=== PATIENT | male | born 1945 | race Caucasian/White ===

== ENCOUNTER 2016-07-13 09:33 | Outpatient (CLI) | payer MEDICARE, OTHER ==
[~2016-07-13] VITALS: Ht 188 cm; Wt 94.9 kg
[~2016-07-13 09:33] MED LIST: ACEB200C PO; ACEB200C11 PO; ASP325TEC PO; ATEN-156 PO; CHOL4PAC PO; CHOL4PAC19 PO; CHOL4PAC3 PO; CYCL10TA9 PO; FISH1CAP15 PO; HYDR-3820 PO; NAPR220C11 PO; NYST30OI TOP; OMEG1CAP58 PO; OMG1KC PO; PNT40TEC PO; PRAV40TA PO; PRAV80TA PO; PRD20T PO; TICA90TA PO; [UNRECOGNIZED DRUG - OTHER] TOP
[2016-07-13] MEDS ORDERED: ATOR40TA70 PO (09:44)
[2016-07-13 09:50] VITALS: BP 146/81
[2016-07-13 10:40] LABS: BASOPHILS % (AUTO) 1 % (0-10); EOSINOPHILS # (AUTO) 0.1 10^3/uL (0.0-0.3); EOSINOPHILS % (AUTO) 1 % (0-10); LYMPHOCYTES # (AUTO) 1.5 X 10^3 (1.0-4.0); LYMPHOCYTES % (AUTO) 24 % (12-44); MEAN CORPUSCULAR HEMOGLOBIN 32 PG (25-34); MEAN CORPUSCULAR HGB CONC 34 G/DL (32-36); MEAN CORPUSCULAR VOLUME 95 FL (80-99); MEAN PLATELET VOLUME 11.9 FL (7.4-10.4); MONOCYTES # (AUTO) 0.6 X 10^3 (0.0-1.0); MONOCYTES % (AUTO) 10 % (0-12); NEUTROPHILS # (AUTO) 3.9 X 10^3 (1.8-7.8); NEUTROPHILS % (AUTO) 65 % (42-75); PLATELET COUNT 152 10^3/uL (130-400); WHITE BLOOD COUNT 6.1 10^3/uL (4.3-11.0)
[2016-07-13 11:01] LABS: ANION GAP 10 MMOL/L (5-14); BLOOD UREA NITROGEN 16 MG/DL (7-18); BUN/CREATININE RATIO 15; CALCIUM 9.1 MG/DL (8.5-10.1); CARBON DIOXIDE 24 MMOL/L (21-32); CHLORIDE 108 MMOL/L (98-107); CREATININE SERUM 1.05 MG/DL (0.60-1.30); GFR ESTIMATED > 60; GLUCOSE 109 MG/DL (70-105); POTASSIUM 4.1 MMOL/L (3.6-5.0); SODIUM 142 MMOL/L (135-145)
== END 2016-07-13 11:47 | disposition home or self-care (01) ==
LOC: PREOP 09:33
PROVIDERS: ATTEND Surgery
DX: Z01.810 Encounter for preprocedural cardiovascular examination (principal); Z01.812 Encounter for preprocedural laboratory examination; Z11.2 Encounter for screening for other bacterial diseases; K40.90 Unilateral inguinal hernia, without obstruction or gangrene, not specified as recurrent
CPT/HCPCS: 36415; 80048; 85025; 87081

== ENCOUNTER 2016-07-16 10:16 | Day surgery (SDC) | payer MEDICARE, OTHER ==
[~2016-07-16] VITALS: Ht 188 cm; Wt 94.9 kg
[~2016-07-16 10:16] MED LIST changes: +ATOR40TA70 PO
[2016-07-16] MEDS ORDERED: FAMOTIDINE 20MG/2ML IV (PEPCID) ONE (10:38)
[2016-07-16] MEDS ORDERED: FAMOTIDINE 20MG/2ML IV (PEPCID) IV ONE (10:45)
[2016-07-16] MEDS ORDERED: LIDOCAINE PF 2% 10 ML (XYLOCAINE) AMP ONE (10:49)
[2016-07-16] MEDS ORDERED: ROCURONIUM 50 MG/5 ML (ZEMURON) VIAL IV ONE (10:49)
[2016-07-16] MEDS ORDERED: SEVOFLURANE (ULTANE) 15 ML INHAL SOLN ONE ×3 (10:49→14:38)
[2016-07-16] MEDS ORDERED: ONDANSETRON 4 MG/2 ML (SDV) Z0FRAN ONE (10:49)
[2016-07-16] MEDS ORDERED: proPOfol 200 MG/20 ML (DIPRIVAN) VIAL IV ONE (10:49)
[2016-07-16] MEDS ORDERED: DEXAMETHASONE PF 10 MG/ML (DECADRON) VIAL ONE (10:49)
[2016-07-16] MEDS ORDERED: fentaNYL INJECTION 100 MCG/2 ML AMP ONE ×3 (10:49→17:52)
[2016-07-16] MEDS ORDERED: MIDAZOLAM 2 MG/2 ML (VERSED) VIAL ONE (10:50)
[2016-07-16] MEDS: LACTATED RINGERS 1,000 ML IV PRN ×2 (10:56→13:15)
[2016-07-16] MEDS ORDERED: BUP/EPI 0.25% 1:200,000 (MARCAINE) 30 ML VIAL ONE (10:57)
[2016-07-16 11:07] VITALS: BP 146/76
--- NOTE | 2016-07-16 12:15 | Progress Note-Pre Operative ---
Pre-Operative Progress Note H&P Reviewed The H&P was reviewed, patient examined and no changes noted. Date H&P Reviewed: Jul 16, 2016 Time H&P Reviewed: 12:15 Pre-Operative Diagnosis: R Inguinal hernia CHANDLER CRUZ MD Jul 16, 2016 12:15 pm
[2016-07-16] MEDS ORDERED: ceFAZolin 2 GM/50 ML NS 50 ML IV ONE (12:45)
[2016-07-16] MEDS ORDERED: GLYCOPYRROLATE 0.2 MG/ML (ROBINUL) 2 ML VIAL ONE (14:27)
[2016-07-16] MEDS ORDERED: NEOSTIGMINE (BLOXIVERZ ) 1 MG/1ML 10 ML VIAL ONE (14:27)
[2016-07-16] MEDS ORDERED: ONDANSETRON 4 MG/2 ML (SDV) Z0FRAN IVP PRN ×2 (15:00→16:30)
[2016-07-16] MEDS ORDERED: MEPERIDINE (DEMEROL) INJ 50 MG/ML IVP PRN (15:00)
[2016-07-16] MEDS: morphine INJ 10 MG/ML 1ML (SYR OR VIAL) IVP PRN ×2 (15:21→15:26)
[2016-07-16 16:00] VITALS: BP 158/71
--- NOTE | 2016-07-16 16:16 | Progress Note-Post Operative ---
Post-Operative Progess Note Pre-Operative Diagnosis R Inguinal hernia Post-Operative Diagnosis same Post-Op Procedure Note Date of Procedure: Jul 16, 2016 Name of Procedure: robotic assisted repair with mesh Anesthesia Type Gen. Estimated blood loss (mL): minimal CHANDLER CRUZ MD Jul 16, 2016 4:16 pm
[2016-07-16] MEDS ORDERED: HYDR-3812 PO (16:22)
--- NOTE | 2016-07-16 16:24 | Discharge Inst-Simple/Standard ---
Discharge Inst-Standard Discharge Medications New, Converted or Re-Newed RX: RX on Chart Patient Instructions/Follow Up Plan of Care/Instructions/FU: dressings off in a.m. Follow-up in 3 weeks. Activity as Tolerated: No Goal: no lifting over 10 pounds Discharge Diet: No Restrictions CHANDLER CRUZ MD Jul 16, 2016 4:23 pm
[2016-07-16 16:50] VITALS: BP 160/71
[2016-07-16] MEDS: LACTATED RINGERS 1,000 ML IV SCH (18:05)
[2016-07-16] MEDS: fentaNYL INJECTION 100 MCG/2 ML AMP IV PRN (18:06)
[2016-07-16 20:00] VITALS: BP 163/74
[2016-07-16] MEDS: HYDROcodone/APAP 5 MG/325 MG (LORTAB) TAB PO PRN (20:40)
[2016-07-16] MEDS ORDERED: ACEBUTOLOL HCL 200 MG PO SCH (21:00)
[2016-07-16] MEDS ORDERED: OMEGA-3 ACID ETHYL ESTERS 1 GM (LOVAZA) NON-FORMULARY PO SCH (21:00)
[2016-07-17] MEDS: fentaNYL INJECTION 100 MCG/2 ML AMP IV PRN (00:22)
[2016-07-17] MEDS: HYDROcodone/APAP 5 MG/325 MG (LORTAB) TAB PO PRN ×2 (00:22→09:24)
[2016-07-17 00:42] VITALS: BP 129/60
[2016-07-17] MEDS: LACTATED RINGERS 1,000 ML IV SCH (01:40)
[2016-07-17 04:30] VITALS: BP 121/56
[2016-07-17] MEDS ORDERED: NAPROXEN 250 MG (NAPROSYN) TABLET PO PRN (06:45)
[2016-07-17 08:00] VITALS: BP 120/60
[2016-07-17] MEDS ORDERED: ATORVASTATIN 40 MG (LIPITOR) TABLET PO SCH ×2 (09:00→12:00)
[2016-07-17] MEDS ORDERED: CHOLESTYRAMINE 4 GM (QUESTRAN LITE, PREVALITE) PKT PO SCH (09:00)
[2016-07-17] MEDS ORDERED: ASPIRIN E.C. 325 MG (ECOTRIN) TABLET PO SCH ×2 (09:00→17:00)
[2016-07-17] MEDS ORDERED: PANTOPRAZOLE 40 MG (PROTONIX) TAB PO SCH ×2 (09:00→17:00)
--- NOTE | 2016-07-17 09:26 | Progress Note-Standard ---
Standard Progress Note Progress Notes/Assess & Plan Progress/Assessment & Plan 07/17/16:Minimal post-op discomfort. Tolerating diet. incisions dry, could be discharged home Final Diagnosis R ing hernia CHANDLER CRUZ MD Jul 17, 2016 9:26 am
--- NOTE | 2016-07-17 09:50 | Anesthesia-General Post-Op ---
General Patient Condition Mental Status/LOC: Same as Preop Cardiovascular: Satisfactory Nausea/Vomiting: Absent Respiratory: Satisfactory Pain: Controlled Complications: Absent Post Op Complications Complications None Follow Up Care/Instructions Patient Instructions None needed. Anesthesia/Patient Condition Patient Condition Patient is doing well, no complaints, stable vital signs, no apparent adverse anesthesia problems. No complications reported per nursing. D/C home per [facility] [place]: No KATERINE MORAES CRNA Jul 17, 2016 09:50
[2016-07-17] MEDS ORDERED: OMEG-160 PO (10:18)
[2016-07-17 10:30] VITALS: BP 120/60
[2016-07-17 11:30] VITALS: BP 120/60
[2016-07-17] MEDS ORDERED: OMEGA 3 (FISH OIL) 1000 MG CAP PO SCH (12:34)
--- NOTE | 2016-07-21 07:31 | OPERATIVE REPORT ---
PROCEDURE PHYSICIAN: CHANDLER CRUZ DATE OF PROCEDURE: 07/13/2016 PREOPERATIVE DIAGNOSIS: Right inguinal hernia. POSTOPERATIVE DIAGNOSIS: Right inguinal hernia. OPERATION: Robotic assisted repair of right inguinal hernia with mesh. SURGEON: Dr. Cruz. ANESTHESIA: General anesthesia. BLOOD LOSS: Minimal. FLUIDS: 1500 mL crystalloids. TYPE OF WOUND: Type I (clean wound). INDICATION FOR PROCEDURE: This gentleman presented with a symptomatic, reducible right inguinal hernia. He was offered minimally invasive repair with robotic assistance and mesh reinforcement. Informed consent was obtained after reviewing the operative details and complications of hematoma, infection of the mesh and recurrence of the hernia. DESCRIPTION OF PROCEDURE: He was placed supine on the operating table and general anesthesia induced using an endotracheal tube. A gram of Ancef was administered intravenously as prophylaxis against wound infection. Sequential compression devices were placed around his legs, to minimize the risk of venous thrombosis. A Pérez catheter was placed to decompress the bladder during surgery. It was removed at the end of the operation. His abdomen was prepared and draped in the usual sterile manner. A supraumbilical incision was made and the pneumoperitoneum established using a Veress needle. Intra-abdominal pressure was maintained at 15 mmHg, using carbon dioxide insufflation. A 12 mm trocar was placed and anatomy visualized using the 3 dimensional, high definition laparoscope associated with da Shonda system. Omentum was found around the trocar and therefore I placed an 8 mm cannula over the left side of the abdomen and visualized the access point over the supraumbilical region using the high definition laparoscope. Omentum itself was confirmed to be adherent to the undersurface of the abdominal wall around the trocar. There was no iatrogenic injury. Therefore, I elected to place a 5 mm trocar over the left lower quadrant and taken down omentum using a laparoscopic grasper. Subsequently, another 8 mm trocar was placed over the right side of the abdomen, in preparation for robotic assisted repair. The patient was turned into steep Trendelenburg position, to displace loops of bowel out of the pelvis. The laparoscopic survey confirmed a large direct hernia. The contents had been reduced by the insufflation. Peritoneum was incised laterally continuing across to the midline. Pre-peritoneal space was entered and dissection continued in a lateral to medial fashion. Hakeem's ligament was easily delineated. Hernia sac containing some extraperitoneal fat was reduced completely. There was no indirect sac. The defect was closed using 2-0 V-LOC suture with robotic assistance without much tension. The repair was then reinforced using a polypropylene mesh measuring 10 x 16 cm in size, preformed to fit the pre-peritoneal space on the right side. It was secured to Hakeem's ligament and the lateral abdominal musculature using 2-0 Vicryl sutures with robotic assistance. The pre-peritoneal space was then closed using a 2-0 V-LOC suture with robotic assistance. Hemostasis was satisfactory and the operation concluded. The fascia over the supraumbilical incision was closed using number 1 Vicryl. The skin was closed using 4-0 Vicryl, in a subcuticular fashion. 0.25% Marcaine with epinephrine was infiltrated along the incisions, both preemptively and at the conclusion of the operation. He tolerated the procedure well, was extubated in the operating room and taken to the recovery room in a stable condition. [place], sponges, and instruments were correct at the end of the operation. Job ID: [id number] Dictated Date: 07/16/2016 16:12:45 Temperature Logging Operator Date: 07/18/2016 00:01:19 / nga <Dictated by CHANDLER CRUZ MD> <Electronically signed by CHANDLER CRUZ MD> 07/19/16 [id number]
== END 2016-07-17 11:30 | disposition home or self-care (01) ==
LOC: SDC 10:16 → CSD 16:13 → 4TH 21:46 → SDC 07-17 11:30
PROVIDERS: ATTEND Surgery
DX: K40.90 Unilateral inguinal hernia, without obstruction or gangrene, not specified as recurrent (principal)
CPT/HCPCS: 94664

== ENCOUNTER → 2016-11-30 | Outpatient (CLI) | payer MEDICARE, OTHER ==
[~2016-11-30] MED LIST changes: +HYDR-3812 PO; +OMEG-160 PO
[2016-11-30 11:37] LABS: ALBUMIN 4.2 GM/DL (3.2-4.5); BILIRUBIN,DIRECT 0.6 MG/DL (0.0-0.3); BILIRUBIN,INDIRECT 1.8 MG/DL; BILIRUBIN,TOTAL 2.4 MG/DL (0.1-1.0); TOTAL PROTEIN 6.9 GM/DL (6.4-8.2)
== END ==
LOC: LAB 11:06
PROVIDERS: ATTEND Internal Medicine Cardiovascular Disease
DX: I25.10 Atherosclerotic heart disease of native coronary artery without angina pectoris (principal); R07.9 Chest pain, unspecified; R73.9 Hyperglycemia, unspecified; R00.2 Palpitations; I49.3 Ventricular premature depolarization
CPT/HCPCS: 36415; 80061; 80076

== ENCOUNTER → 2017-10-22 | Outpatient (CLI) | payer MEDICARE, OTHER ==
[~2017-10-22] MED LIST changes: +ACHD5005 PO; -HYDR-3812 PO
[2017-10-22 12:05] LABS: ALANINE AMINOTRANSFERASE 23 U/L (0-55); ALBUMIN 4.3 GM/DL (3.2-4.5); ALKALINE PHOSPHATASE 65 U/L (40-136); BILIRUBIN,TOTAL 2.4 MG/DL (0.1-1.0); BUN/CREATININE RATIO 17; CALCIUM 9.4 MG/DL (8.5-10.1); CARBON DIOXIDE 24 MMOL/L (21-32); CHLORIDE 110 MMOL/L (98-107); CHOLESTEROL 131 MG/DL (< 200); CREATININE SERUM 0.99 MG/DL (0.60-1.30); GFR ESTIMATED > 60; GLUCOSE 111 MG/DL (70-105); HDL CHOLESTEROL 37 MG/DL (40-60); POTASSIUM 4.4 MMOL/L (3.6-5.0); SODIUM 142 MMOL/L (135-145); TOTAL PROTEIN 6.8 GM/DL (6.4-8.2); TRIGLYCERIDES 152 MG/DL (<150); VLDL CHOLESTEROL 30 MG/DL (5-40)
== END ==
LOC: LAB 11:18
PROVIDERS: ATTEND Internal Medicine Cardiovascular Disease
DX: I25.10 Atherosclerotic heart disease of native coronary artery without angina pectoris (principal); R07.9 Chest pain, unspecified; R73.9 Hyperglycemia, unspecified; E78.2 Mixed hyperlipidemia; R00.2 Palpitations
CPT/HCPCS: 36415; 80053; 80061

== ENCOUNTER → 2018-06-01 | Outpatient (CLI) | payer MEDICARE, OTHER ==
[2018-06-01 14:53] LABS: BASOPHILS % (AUTO) 1 % (0-10); EOSINOPHILS # (AUTO) 0.1 10^3/uL (0.0-0.3); EOSINOPHILS % (AUTO) 1 % (0-10); HEMATOCRIT 48 % (40-54); HEMOGLOBIN 16.1 G/DL (13.3-17.7); LYMPHOCYTES # (AUTO) 1.3 X 10^3 (1.0-4.0); LYMPHOCYTES % (AUTO) 19 % (12-44); MEAN CORPUSCULAR HEMOGLOBIN 33 PG (25-34); MEAN CORPUSCULAR HGB CONC 34 G/DL (32-36); MEAN CORPUSCULAR VOLUME 97 FL (80-99); MEAN PLATELET VOLUME 11.2 FL (7.4-10.4); MONOCYTES # (AUTO) 0.6 X 10^3 (0.0-1.0); MONOCYTES % (AUTO) 8 % (0-12); NEUTROPHILS # (AUTO) 4.9 X 10^3 (1.8-7.8); NEUTROPHILS % (AUTO) 72 % (42-75); PLATELET COUNT 194 10^3/uL (130-400); RED BLOOD COUNT 4.95 10^6/uL (4.35-5.85); RED CELL DISTRIBUTION WIDTH 13.4 % (10.0-14.5); WHITE BLOOD COUNT 6.8 10^3/uL (4.3-11.0)
[2018-06-01 15:14] LABS: ALANINE AMINOTRANSFERASE 27 U/L (0-55); ALBUMIN 4.6 GM/DL (3.2-4.5); ALKALINE PHOSPHATASE 69 U/L (40-136); BILIRUBIN,TOTAL 2.6 MG/DL (0.1-1.0); BUN/CREATININE RATIO 15; CALCIUM 9.7 MG/DL (8.5-10.1); CARBON DIOXIDE 25 MMOL/L (21-32); CHLORIDE 106 MMOL/L (98-107); CREATININE SERUM 1.08 MG/DL (0.60-1.30); GFR ESTIMATED > 60; GLUCOSE 130 MG/DL (70-105); POTASSIUM 3.9 MMOL/L (3.6-5.0); SODIUM 143 MMOL/L (135-145); TOTAL PROTEIN 7.4 GM/DL (6.4-8.2)
[2018-06-01 15:57] LABS: ERYTHROCYTE SEDIMENTATION RATE 4 MM/HR (0-30)
--- NOTE | 2018-06-01 16:42 | Diagnostic Imaging Report ---
EXAMINATION: Testicular ultrasound. INDICATION: Testicular lump. TECHNIQUE: Spectral and color flow imaging of the testicles was performed. COMPARISON: There are no prior studies available for comparison. FINDINGS: Both testicles were identified. The right testicle measures 5.3 x 2.5 x 3.1 cm while the left testicle is estimated to be 5.5 x 2.3 x 2.8 cm. Within the inferior portion of the left testicle, there is a well-circumscribed 1.5 x 1.2 x 1.8 cm hypoechoic lesion. This does appear to contain a single septation. I suspect that this is a benign process such as a cyst. There also appears to be a very small 0.3 x 0.3 cm cyst in the superior portion of the right testicle. In addition, there is a sizable septated epididymal cyst on the right. This measures 4.5 x 4.2 x 2.2 cm. The epididymis on the left is unremarkable. There is good blood flow to each testicle and there is no sign of torsion. There is no hydrocele or varicocele formation. IMPRESSION: 1. There is a septated cyst within the inferior portion of the left testicle and there is a large septated cyst associated with the epididymis on the right. There is also a minute right testicular cyst. If further evaluation is desired, then a urologic consult would be recommended. 2. There is no solid testicular mass evident and there is no sign of torsion. Dictated by: Dictated on workstation # [id number]
== END ==
LOC: RAD 14:33
PROVIDERS: ATTEND Nurse Practitioner Family
DX: N44.2 Benign cyst of testis (principal); N50.9 Disorder of male genital organs, unspecified
CPT/HCPCS: 36415; 76870; 80053; 84153; 85025; 85652

== ENCOUNTER → 2018-06-08 | Outpatient (CLI) | payer MEDICARE, OTHER | LOC: CARD 11:43 | PROVIDERS: ATTEND Physician Assistant | DX: I25.10 Atherosclerotic heart disease of native coronary artery without angina pectoris (principal); E78.5 Hyperlipidemia, unspecified; R00.2 Palpitations; I49.3 Ventricular premature depolarization; I07.1 Rheumatic tricuspid insufficiency | CPT/HCPCS: 93306 ==

== ENCOUNTER → 2018-07-06 | Outpatient (CLI) | payer MEDICARE, OTHER ==
[~2018-07-06] MED LIST changes: +CATHETER FLUSH 10 ML SYR IV PRN; +REGADENOSON 0.4 MG/5 ML SYR (LEXISCAN) IV ONE
[2018-07-06 13:11] VITALS: BP 153/66
--- NOTE | 2018-07-06 23:52 | STRESS TEST ---
DATE OF SERVICE: 07/06/2018 LEXISCAN MYOVIEW STRESS TEST REPORT Baseline heart rate is 57. Baseline blood pressure is 177/78. Baseline EKG is sinus rhythm with no ischemic changes. In summary, the patient was injected with 10.53 mCi of technetium-99 Myoview and the resting images were obtained. Then, the patient received 0.4 mg of Lexiscan followed by 28.7 mCi of technetium-99 Myoview. Throughout the test, there were no EKG changes. The resting and stress images were reviewed and compared in the short axis, horizontal long axis, and vertical long axis views. Review of the images showed good radiotracer uptake with no significant ischemia or infarction. SSS is 2, SDS 2, TID value 1.04. On the gated images, the left ventricle appeared to be normal size with normal contractility. Calculated ejection fraction 63%. CONCLUSION: 1. The patient tolerated Lexiscan well. 2. No ischemia or infarction on SPECT images. 3. Normal left ventricular size with normal contractility. Calculated ejection fraction 63%. Job ID: [id number] DocumentID: [id number] Dictated Date: 07/06/2018 17:29:21 Warehouse Stocker Date: 07/06/2018 23:51:48 Dictated By: PILO FORBES MD
== END ==
LOC: CARD 11:03
PROVIDERS: ATTEND Physician Assistant
DX: I25.10 Atherosclerotic heart disease of native coronary artery without angina pectoris (principal); E78.5 Hyperlipidemia, unspecified; R00.2 Palpitations; I49.3 Ventricular premature depolarization
CPT/HCPCS: 78452; 93017

== ENCOUNTER 2018-08-18 17:46 | Emergency (ER) | payer MEDICARE, OTHER ==
[~2018-08-18] VITALS: Ht 188 cm; Wt 96.2 kg
[~2018-08-18 17:46] MED LIST changes: -CATHETER FLUSH 10 ML SYR IV PRN; -REGADENOSON 0.4 MG/5 ML SYR (LEXISCAN) IV ONE
--- OUTSIDE RECORDS SUMMARY | 2018-08-18 18:10 | XMS REPORT | Continuity of Care Document ---
Author Author [facility] Organization [facility] Address Unknown Phone Unavailable Allergies Active Description Code Type Severity Reaction Onset Reported/Identified Relationship to Patient Clinical Status Yes No Known Drug Allergies [id number] Drug Allergy Unknown N/A 07/13/2016 Medications There is no data. Problems Date Dx Coded Attending Type Code Diagnosis Diagnosed By 11/26/2010 Ot 272.4 HYPERLIPIDEMIA NEC/NOS 11/26/2010 Ot 397.0 TRICUSPID VALVE DISEASE 11/26/2010 Ot 401.9 HYPERTENSION NOS 11/26/2010 Ot 424.0 MITRAL VALVE DISORDER 11/26/2010 Ot 427.69 PREMATURE BEATS NEC 11/26/2010 Ot 518.0 PULMONARY COLLAPSE 11/26/2010 Ot 564.1 IRRITABLE BOWEL SYNDROME 11/26/2010 Ot 593.9 RENAL URETERAL DIS NOS 11/26/2010 Ot 786.59 CHEST PAIN NEC 11/26/2010 Ot 790.29 OTHER ABNORMAL GLUCOSE 11/26/2010 Ot V58.69 OTH MED,LT, CURRENT USE 04/16/2011 Ot 785.1 PALPITATIONS 04/29/2012 Ot 272.4 HYPERLIPIDEMIA NEC/NOS 04/29/2012 Ot 427.31 ATRIAL FIBRILLATION 04/29/2012 Ot 427.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 04/29/2012 Ot 786.59 CHEST PAIN NEC 04/29/2012 Ot V58.69 OTH MED,LT, CURRENT USE 10/27/2012 PILO FORBES MD Ot 272.4 HYPERLIPIDEMIA NEC/NOS 10/27/2012 PILO FORBES MD Ot 300.00 ANXIETY STATE NOS 10/27/2012 PILO FORBES MD Ot 401.9 HYPERTENSION NOS 10/27/2012 PILO FORBES MD Ot 411.1 INTERMED CORONARY SYND 10/27/2012 PILO FORBES MD Ot 414.01 CORONARY ATHEROSCLEROSIS OF [place] CORON 10/27/2012 PILO FORBES MD Ot 427.0 PAROX ATRIAL TACHYCARDIA 10/27/2012 PILO FORBES MD Ot 427.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 10/27/2012 PILO FORBES MD Ot V58.66 LONG-TERM (CURRENT) USE OF ASPIRIN 10/27/2012 PILO FORBES MD Ot V58.69 OTH MED,LT,CURRENT USE 10/29/2012 KYM LEWIS, KELLY Layton Ot 998.12 HEMATOMA COMPLIC A PROC 11/22/2013 ANTHONY LEWIS, CHANDLER Stone Ot 562.10 DIVERTICULOSIS COLON (W/O MENT OF HEMORR 11/22/2013 CHANDLER CRUZ MD Ot 565.0 ANAL FISSURE 11/22/2013 CHANDLER CRUZ MD Ot 698.0 PRURITUS ANI 08/30/2014 Ot 272.4 08/30/2014 Ot 414.00 08/30/2014 Ot 785.1 08/30/2014 Ot 786.50 11/26/2014 PILO FORBES MD Ot 272.4 11/26/2014 PILO FORBES MD Ot 414.00 11/26/2014 PILO FORBES MD Ot 785.1 11/26/2014 PILO FORBES MD Ot 786.50 12/11/2015 PILO FORBES MD Ot I25.10 ATHSCL HEART DISEASE OF [place] CORONARY 12/11/2015 PILO FORBES MD Ot I49.9 CARDIAC ARRHYTHMIA, UNSPECIFIED 12/11/2015 PILO FORBES MD Ot R00.2 PALPITATIONS 12/11/2015 PILO FORBES MD Ot R07.9 CHEST PAIN, UNSPECIFIED 12/11/2015 PILO FORBES MD Ot R73.9 HYPERGLYCEMIA, UNSPECIFIED 01/15/2016 PILO FORBES MD Ot I25.10 ATHSCL HEART DISEASE OF [place] CORONARY 01/15/2016 PILO FORBES MD Ot I49.9 CARDIAC ARRHYTHMIA, UNSPECIFIED 01/15/2016 PILO FORBES MD Ot R00.2 PALPITATIONS 01/15/2016 PILO FORBES MD Ot R07.9 CHEST PAIN, UNSPECIFIED 01/15/2016 PILO FORBES MD Ot R73.9 HYPERGLYCEMIA, UNSPECIFIED 01/16/2016 PILO FORBES MD Ot I25.10 ATHSCL HEART DISEASE OF [place] CORONARY 01/16/2016 PILO FORBES MD Ot I49.9 CARDIAC ARRHYTHMIA, UNSPECIFIED 01/16/2016 PILO FORBES MD Ot R00.2 PALPITATIONS 01/16/2016 PILO FORBES MD Ot R07.9 CHEST PAIN, UNSPECIFIED 01/16/2016 PILO FORBES MD Ot R73.9 HYPERGLYCEMIA, UNSPECIFIED 01/17/2016 PILO FORBES MD Ot I25.10 ATHSCL HEART DISEASE OF [place] CORONARY 01/17/2016 PILO FORBES MD Ot I49.9 CARDIAC ARRHYTHMIA, UNSPECIFIED 01/17/2016 PILO FORBES MD Ot R00.2 PALPITATIONS 01/17/2016 PILO FORBES MD Ot R07.9 CHEST PAIN, UNSPECIFIED 01/17/2016 PILO FORBES MD Ot R73.9 HYPERGLYCEMIA, UNSPECIFIED 02/07/2016 PILO FORBES MD Ot I25.10 ATHSCL HEART DISEASE OF [place] CORONARY 02/07/2016 PILO FORBES MD Ot I49.9 CARDIAC ARRHYTHMIA, UNSPECIFIED 02/07/2016 PILO FORBES MD Ot R00.2 PALPITATIONS 02/07/2016 PILO FORBES MD Ot R07.9 CHEST PAIN, UNSPECIFIED 02/07/2016 PILO FORBES MD Ot R73.9 HYPERGLYCEMIA, UNSPECIFIED 02/08/2016 Ot 785.1 PALPITATIONS 02/08/2016 CHET CARLSON Ot M47.816 SPONDYLOSIS W/O MYELOPATHY OR RADICULOPA 02/08/2016 CHET CARLSON Ot M51.26 OTHER INTERVERTEBRAL DISC DISPLACEMENT, 02/08/2016 CHET CARLSON Ot M54.5 LOW BACK PAIN 02/08/2016 CHET CARLSON Ot Z79.82 BARREL STRAIGHTENER (CURRENT) USE OF ASPIRIN 02/08/2016 CHET CARLSON Ot Z79.899 OTHER RESIDENTIAL (CURRENT) DRUG THERAPY 02/08/2016 Ot 785.1 PALPITATIONS 02/08/2016 Ot 272.4 HYPERLIPIDEMIA NEC/NOS 02/08/2016 Ot 790.29 OTHER ABNORMAL GLUCOSE 02/08/2016 Ot 272.4 HYPERLIPIDEMIA NEC/NOS 02/08/2016 Ot 272.4 HYPERLIPIDEMIA NEC/NOS 02/08/2016 Ot 401.9 HYPERTENSION NOS 02/08/2016 CARBONEJOSE ANTONIO LOPEZ MADHURI Ot 272.4 HYPERLIPIDEMIA NEC/NOS 02/08/2016 PAT WHELAN Ot 272.4 HYPERLIPIDEMIA NEC/NOS 02/08/2016 PILO FORBES MD Ot 272.4 HYPERLIPIDEMIA NEC/NOS 02/08/2016 PILO FORBES MD Ot 397.0 TRICUSPID VALVE DISEASE 02/08/2016 PILO FORBES MD Ot 414.00 CORON ATHEROSCLER NOS TYPE VESSEL, NATIV 02/08/2016 PILO FORBES MD Ot 424.0 MITRAL VALVE DISORDER 02/08/2016 PILO FORBES MD Ot 427.31 ATRIAL FIBRILLATION 02/08/2016 PILO FORBES MD Ot 427.89 CARDIAC DYSRHYTHMIAS NEC 02/08/2016 PILO FORBES MD Ot 785.1 PALPITATIONS 02/08/2016 PILO FORBES MD Ot 272.4 HYPERLIPIDEMIA NEC/NOS 02/08/2016 PILO FORBES MD Ot 414.00 CORON ATHEROSCLER NOS TYPE VESSEL, NATIV 02/08/2016 PILO FORBES MD Ot 427.31 ATRIAL FIBRILLATION 02/08/2016 PILO FORBES MD Ot 427.89 CARDIAC DYSRHYTHMIAS NEC 02/08/2016 PILO FORBES MD Ot 785.1 PALPITATIONS 02/08/2016 PILO FORBES MD Ot 790.29 OTHER ABNORMAL GLUCOSE 02/08/2016 ANTHONY LEWIS, CHANDLER Stone Ot 569.42 ANAL OR RECTAL PAIN 02/08/2016 ANTHONY LEWIS, CHANDLER Stone Ot V72.83 EXAM PRE-OPERATIVE NEC 02/08/2016 CHANDLER CRUZ MD Ot V74.8 SCREEN-BACTERIAL DIS NEC 02/08/2016 PAT WHELAN Ot 272.4 HYPERLIPIDEMIA NEC/NOS 02/08/2016 Ot 272.4 HYPERLIPIDEMIA NEC/NOS 02/08/2016 Ot 414.00 CORON ATHEROSCLER NOS TYPE VESSEL, NATIV 02/08/2016 Ot 785.1 PALPITATIONS 02/08/2016 Ot 786.50 CHEST PAIN NOS 02/08/2016 PILO FORBES MD Ot 272.4 HYPERLIPIDEMIA NEC/NOS 02/08/2016 PILO FORBES MD Ot 414.00 CORON ATHEROSCLER NOS TYPE VESSEL, NATIV 02/08/2016 PILO FORBES MD Ot 785.1 PALPITATIONS 02/08/2016 PILO FORBES MD Ot 786.50 CHEST PAIN NOS 02/08/2016 PILO FORBES MD Ot I25.10 ATHSCL HEART DISEASE OF [place] CORONARY 02/08/2016 PILO FORBES MD Ot I49.9 CARDIAC ARRHYTHMIA, UNSPECIFIED 02/08/2016 PILO FORBES MD Ot R00.2 PALPITATIONS 02/08/2016 PILO FORBES MD Ot R07.9 CHEST PAIN, UNSPECIFIED 02/08/2016 PILO FORBES MD Ot R73.9 HYPERGLYCEMIA, UNSPECIFIED 02/08/2016 PILO FORBES MD Ot I25.10 ATHSCL HEART DISEASE OF [place] CORONARY 02/08/2016 PILO FORBES MD Ot I49.9 CARDIAC ARRHYTHMIA, UNSPECIFIED 02/08/2016 PILO FORBES MD Ot R00.2 PALPITATIONS 02/08/2016 PILO FORBES MD Ot R07.9 CHEST PAIN, UNSPECIFIED 02/08/2016 PILO FORBES MD Ot R73.9 HYPERGLYCEMIA, UNSPECIFIED 02/10/2016 CHET CARLSON Ot M47.816 SPONDYLOSIS W/O MYELOPATHY OR RADICULOPA 02/10/2016 CHET CARLSON Ot M51.26 OTHER INTERVERTEBRAL DISC DISPLACEMENT, 02/10/2016 CHET CARLSON Ot M54.5 LOW BACK PAIN 02/10/2016 CHET CARLSON Ot Z79.82 BARREL STRAIGHTENER (CURRENT) USE OF ASPIRIN 02/10/2016 CHET CARLSON Ot Z79.899 OTHER RESIDENTIAL (CURRENT) DRUG THERAPY 07/13/2016 Ot 785.1 PALPITATIONS 07/13/2016 ANTHONY LEWIS, CHANDLER Stone Ot K40.90 UNIL INGUINAL HERNIA, W/O OBST OR GANGR, 07/13/2016 CHANDLER CRUZ MD Ot Z01.810 ENCOUNTER FOR PREPROCEDURAL CARDIOVASCUL 07/13/2016 CHANDLER CRUZ MD Ot Z01.812 ENCOUNTER FOR PREPROCEDURAL LABORATORY E 07/13/2016 CHANDLER CRUZ MD Ot Z11.2 ENCOUNTER FOR SCREENING FOR OTHER BACTER 07/16/2016 ANTHONY LEWIS, CHANDLER Stone Ot K40.90 UNIL INGUINAL HERNIA, W/O OBST OR GANGR, 07/16/2016 ANTHONY LEWIS, CHANDLER Stone Ot Z01.810 ENCOUNTER FOR PREPROCEDURAL CARDIOVASCUL 07/16/2016 CHANDLER CRUZ MD Ot Z01.812 ENCOUNTER FOR PREPROCEDURAL LABORATORY E 07/16/2016 ANTHONY LEWIS, CHANDLER Stone Ot Z11.2 ENCOUNTER FOR SCREENING FOR OTHER BACTER 07/16/2016 PILO FORBES MD Ot I25.10 ATHSCL HEART DISEASE OF [place] CORONARY 07/16/2016 PILO FORBES MD Ot I49.9 CARDIAC ARRHYTHMIA, UNSPECIFIED 07/16/2016 PILO FORBES MD Ot R00.2 PALPITATIONS 07/16/2016 PILO FORBES MD Ot R07.9 CHEST PAIN, UNSPECIFIED 07/16/2016 PILO FORBES MD Ot R73.9 HYPERGLYCEMIA, UNSPECIFIED 07/16/2016 PILO FORBES MD Ot I25.10 ATHSCL HEART DISEASE OF [place] CORONARY 07/16/2016 PILO FORBES MD Ot I49.9 CARDIAC ARRHYTHMIA, UNSPECIFIED 07/16/2016 PILO FORBES MD Ot R00.2 PALPITATIONS 07/16/2016 PILO FORBES MD Ot R07.9 CHEST PAIN, UNSPECIFIED 07/16/2016 PILO FORBES MD Ot R73.9 HYPERGLYCEMIA, UNSPECIFIED 07/17/2016 CHANDLER CRUZ MD Ot K40.90 UNIL INGUINAL HERNIA, W/O OBST OR GANGR, 07/22/2016 CHANDLER CRUZ MD Ot K40.90 UNIL INGUINAL HERNIA, W/O OBST OR GANGR, 11/30/2016 PILO FORBES MD Ot I25.10 ATHSCL HEART DISEASE OF [place] CORONARY 11/30/2016 PILO FORBES MD Ot I49.9 CARDIAC ARRHYTHMIA, UNSPECIFIED 11/30/2016 PILO FORBES MD Ot R00.2 PALPITATIONS 11/30/2016 PILO FORBES MD Ot R07.9 CHEST PAIN, UNSPECIFIED 11/30/2016 PILO FORBES MD Ot R73.9 HYPERGLYCEMIA, UNSPECIFIED 11/30/2016 PILO FORBES MD Ot I25.10 ATHSCL HEART DISEASE OF [place] CORONARY 11/30/2016 PILO FORBES MD Ot I49.9 CARDIAC ARRHYTHMIA, UNSPECIFIED 11/30/2016 PILO FORBES MD Ot R00.2 PALPITATIONS 11/30/2016 PILO FORBES MD Ot R07.9 CHEST PAIN, UNSPECIFIED 11/30/2016 PILO FORBES MD Ot R73.9 HYPERGLYCEMIA, UNSPECIFIED 11/30/2016 PILO FORBES MD Ot I25.10 ATHSCL HEART DISEASE OF [place] CORONARY 12/02/2016 PILO FORBES MD Ot I25.10 ATHSCL HEART DISEASE OF [place] CORONARY 12/02/2016 PILO FORBES MD Ot I49.3 VENTRICULAR PREMATURE DEPOLARIZATION 12/02/2016 PILO FORBES MD Ot R00.2 PALPITATIONS 12/02/2016 PILO FORBES MD Ot R07.9 CHEST PAIN, UNSPECIFIED 12/02/2016 PILO FORBES MD Ot R73.9 HYPERGLYCEMIA, UNSPECIFIED 12/25/2016 PILO FORBES MD Ot I25.10 ATHSCL HEART DISEASE OF [place] CORONARY 12/25/2016 PILO FORBES MD Ot I49.3 VENTRICULAR PREMATURE DEPOLARIZATION 12/25/2016 PILO FORBES MD Ot R00.2 PALPITATIONS 12/25/2016 PILO FORBES MD Ot R07.9 CHEST PAIN, UNSPECIFIED 12/25/2016 PILO FORBES MD Ot R73.9 HYPERGLYCEMIA, UNSPECIFIED 10/22/2017 PILO FORBES MD Ot I25.10 ATHSCL HEART DISEASE OF [place] CORONARY 10/22/2017 PILO FORBES MD Ot I49.9 CARDIAC ARRHYTHMIA, UNSPECIFIED 10/22/2017 PILO FORBES MD Ot R00.2 PALPITATIONS 10/22/2017 PILO FORBES MD Ot R07.9 CHEST PAIN, UNSPECIFIED 10/22/2017 PILO FORBES MD Ot R73.9 HYPERGLYCEMIA, UNSPECIFIED 10/22/2017 PILO FORBES MD Ot I25.10 ATHSCL HEART DISEASE OF [place] CORONARY 10/22/2017 PILO FORBES MD Ot I49.9 CARDIAC ARRHYTHMIA, UNSPECIFIED 10/22/2017 PILO FORBES MD Ot R00.2 PALPITATIONS 10/22/2017 PILO FORBES MD Ot R07.9 CHEST PAIN, UNSPECIFIED 10/22/2017 PILO FORBES MD Ot R73.9 HYPERGLYCEMIA, UNSPECIFIED 10/22/2017 PILO FORBES MD Ot I25.10 ATHSCL HEART DISEASE OF [place] CORONARY 10/22/2017 PILO FORBES MD Ot I49.3 VENTRICULAR PREMATURE DEPOLARIZATION 10/22/2017 PILO FORBES MD Ot R00.2 PALPITATIONS 10/22/2017 PILO FORBES MD Ot R07.9 CHEST PAIN, UNSPECIFIED 10/22/2017 PILO FORBES MD Ot R73.9 HYPERGLYCEMIA, UNSPECIFIED 10/27/2017 PILO FORBES MD Ot E78.2 MIXED HYPERLIPIDEMIA 10/27/2017 PILO FORBES MD Ot I25.10 ATHSCL HEART DISEASE OF [place] CORONARY 10/27/2017 PILO FORBES MD Ot R00.2 PALPITATIONS 10/27/2017 PILO FORBES MD Ot R07.9 CHEST PAIN, UNSPECIFIED 10/27/2017 PILO FORBES MD Ot R73.9 HYPERGLYCEMIA, UNSPECIFIED 11/12/2017 PILO FORBES MD Ot E78.2 MIXED HYPERLIPIDEMIA 11/12/2017 PILO FORBES MD Ot I25.10 ATHSCL HEART DISEASE OF [place] CORONARY 11/12/2017 PILO FORBES MD Ot R00.2 PALPITATIONS 11/12/2017 PILO FORBES MD Ot R07.9 CHEST PAIN, UNSPECIFIED 11/12/2017 PILO FORBES MD Ot R73.9 HYPERGLYCEMIA, UNSPECIFIED 06/01/2018 PAT WHELAN Ot 272.4 HYPERLIPIDEMIA NEC/NOS 06/01/2018 PILO FORBES MD Ot 272.4 HYPERLIPIDEMIA NEC/NOS 06/01/2018 PILO FORBES MD Ot 397.0 TRICUSPID VALVE DISEASE 06/01/2018 PILO FORBES MD Ot 414.00 CORON ATHEROSCLER NOS TYPE VESSEL, NATIV 06/01/2018 PILO FORBES MD Ot 424.0 MITRAL VALVE DISORDER 06/01/2018 PILO FORBES MD Ot 427.31 ATRIAL FIBRILLATION 06/01/2018 PILO FORBES MD Ot 427.89 CARDIAC DYSRHYTHMIAS NEC 06/01/2018 PILO FORBES MD Ot 785.1 PALPITATIONS 06/01/2018 PILO FORBES MD Ot 272.4 HYPERLIPIDEMIA NEC/NOS 06/01/2018 PILO FORBES MD Ot 414.00 CORON ATHEROSCLER NOS TYPE VESSEL, NATIV 06/01/2018 PILO FORBES MD Ot 427.31 ATRIAL FIBRILLATION 06/01/2018 PILO FORBES MD Ot 427.89 CARDIAC DYSRHYTHMIAS NEC 06/01/2018 PILO FORBES MD Ot 785.1 PALPITATIONS 06/01/2018 PILO FORBES MD Ot 790.29 OTHER ABNORMAL GLUCOSE 06/01/2018 ANTHONY LEWIS, CHANDLER Stone Ot 569.42 ANAL OR RECTAL PAIN 06/01/2018 ANTHONY LEWIS, CHANDLER Stone Ot V72.83 EXAM PRE-OPERATIVE NEC 06/01/2018 ANTHONY LEWIS, CHANDLER Stone Ot V74.8 SCREEN-BACTERIAL DIS NEC 06/01/2018 PAT WHELAN Ot 272.4 HYPERLIPIDEMIA NEC/NOS 06/01/2018 Ot 272.4 HYPERLIPIDEMIA NEC/NOS 06/01/2018 Ot 414.00 CORON ATHEROSCLER NOS TYPE VESSEL, NATIV 06/01/2018 Ot 785.1 PALPITATIONS 06/01/2018 Ot 786.50 CHEST PAIN NOS 06/01/2018 PILO FORBES MD Ot 272.4 HYPERLIPIDEMIA NEC/NOS 06/01/2018 PILO FORBES MD Ot 414.00 CORON ATHEROSCLER NOS TYPE VESSEL, NATIV 06/01/2018 PILO FORBES MD Ot 785.1 PALPITATIONS 06/01/2018 PILO FORBES MD Ot 786.50 CHEST PAIN NOS 06/01/2018 PILO FORBES MD Ot I25.10 ATHSCL HEART DISEASE OF [place] CORONARY 06/01/2018 PILO FORBES MD Ot I49.9 CARDIAC ARRHYTHMIA, UNSPECIFIED 06/01/2018 PILO FORBES MD Ot R00.2 PALPITATIONS 06/01/2018 PILO FORBES MD Ot R07.9 CHEST PAIN, UNSPECIFIED 06/01/2018 PILO FORBES MD Ot R73.9 HYPERGLYCEMIA, UNSPECIFIED 06/01/2018 PILO FORBES MD Ot I25.10 ATHSCL HEART DISEASE OF [place] CORONARY 06/01/2018 PILO FORBES MD Ot I49.9 CARDIAC ARRHYTHMIA, UNSPECIFIED 06/01/2018 PILO FORBES MD J Ot R00.2 PALPITATIONS 06/01/2018 PILO FORBES MD Ot R07.9 CHEST PAIN, UNSPECIFIED 06/01/2018 PILO FORBES MD Ot R73.9 HYPERGLYCEMIA, UNSPECIFIED 06/01/2018 PILO FORBES MD J Ot I25.10 ATHSCL HEART DISEASE OF [place] CORONARY 06/01/2018 PILO FORBES MD J Ot I49.3 VENTRICULAR PREMATURE DEPOLARIZATION 06/01/2018 PILO FORBES MD Ot R00.2 PALPITATIONS 06/01/2018 PILO FORBES MD J Ot R07.9 CHEST PAIN, UNSPECIFIED 06/01/2018 PILO FORBES MD Ot R73.9 HYPERGLYCEMIA, UNSPECIFIED 06/01/2018 PILO FORBES MD J Ot E78.2 MIXED HYPERLIPIDEMIA 06/01/2018 PILO FORBES MD J Ot I25.10 ATHSCL HEART DISEASE OF [place] CORONARY 06/01/2018 PILO FORBES MD Ot R00.2 PALPITATIONS 06/01/2018 PILO FORBES MD Ot R07.9 CHEST PAIN, UNSPECIFIED 06/01/2018 PILO FORBES MD Ot R73.9 HYPERGLYCEMIA, UNSPECIFIED 06/01/2018 LALO MCCLELLAND [employer]LESS [employer]HICLE SUPERVISOR Ot 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.9 DISORDER OF PROSTATE, UNSPECIFIED 06/01/2018 LALO MCCLELLAND ENDLESS [employer] VEHICLE SUPERVISOR Ot N42.9 DISORDER OF PROSTATE, UNSPECIFIED 06/02/2018 LALO MCCLELLAND ENDLESS [employer] VEHICLE SUPERVISOR Ot 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.2 BENIGN CYST OF TESTIS 06/02/2018 LALO MCCLELLAND ENDLESS [employer] VEHICLE SUPERVISOR Ot N50.9 DISORDER OF MALE GENITAL ORGANS, UNSPECI 06/07/2018 LALO MCCLELLAND ENDLESS [employer]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 SUPERVISOR Ot N44.2 BENIGN CYST OF TESTIS 06/07/2018 LALO MCCLELLAND R [employer]LESS [employer] VEHICLE SUPERVISOR Ot N50.9 DISORDER OF MALE GENITAL ORGANS, UNSPECI 06/10/2018 PAT WHELAN Ot E78.5 HYPERLIPIDEMIA, UNSPECIFIED 06/10/2018 PAT WHELAN Ot I07.1 RHEUMATIC TRICUSPID INSUFFICIENCY 06/10/2018 GIN DYER, PAT K Ot I25.10 ATHSCL HEART DISEASE OF [place] CORONARY 06/10/2018 GIN DYER, PAT Peace Ot I49.3 VENTRICULAR PREMATURE DEPOLARIZATION 06/10/2018 GIN DYER, PAT Peace Ot R00.2 PALPITATIONS 07/04/2018 LALO MCCLELLAND ENDLESS [employer] VEHICLE SUPERVISOR Ot N44.2 BENIGN CYST OF TESTIS 07/04/2018 LALO MCCLELLAND ENDLESS [employer] VEHICLE SUPERVISOR Ot N50.9 DISORDER OF MALE GENITAL ORGANS, UNSPECI 07/06/2018 GIN DYER, PAT Peace Ot E78.5 HYPERLIPIDEMIA, UNSPECIFIED 07/06/2018 GIN DYER, PAT Peace Ot I07.1 RHEUMATIC TRICUSPID INSUFFICIENCY 07/06/2018 GIN DYER, PAT Peace Ot I25.10 ATHSCL HEART DISEASE OF [place] CORONARY 07/06/2018 GIN DYER, PAT Peace Ot I49.3 VENTRICULAR PREMATURE DEPOLARIZATION 07/06/2018 GIN DYER, PAT K Ot R00.2 PALPITATIONS 07/07/2018 GIN DYER, PAT Peace Ot E78.5 HYPERLIPIDEMIA, UNSPECIFIED 07/07/2018 GIN DYER, PAT K Ot I25.10 ATHSCL HEART DISEASE OF [place] CORONARY 07/07/2018 GIN DYER, PAT K Ot I49.3 VENTRICULAR PREMATURE DEPOLARIZATION 07/07/2018 GIN DYER, PAT K Ot R00.2 PALPITATIONS 07/27/2018 GIN DYER, PAT Peace Ot E78.5 HYPERLIPIDEMIA, UNSPECIFIED 07/27/2018 GIN DYER, PAT K Ot I25.10 ATHSCL HEART DISEASE OF [place] CORONARY 07/27/2018 PAT WHELAN Ot I49.3 VENTRICULAR PREMATURE DEPOLARIZATION 07/27/2018 GIN DYER, PAT K Ot R00.2 PALPITATIONS Procedures There is no data. Results Test Result Range Complete blood count (CBC) with automated white blood cell (WBC) differential - 07/13/16 10:10 Blood leukocytes automated count (number/volume) 6.1 10*3/uL 4.3-11.0 Blood erythrocytes automated count (number/volume) 4.70 10*6/uL 4.35-5.85 Venous blood hemoglobin measurement (mass/volume) 15.1 g/dL 13.3-17.7 Blood hematocrit (volume fraction) 45 % 40-54 Automated erythrocyte mean corpuscular volume 95 [foz_us] 80-99 Automated erythrocyte mean corpuscular hemoglobin (mass per erythrocyte) 32 pg 25-34 Automated erythrocyte mean corpuscular hemoglobin concentration measurement ( mass/volume) 34 g/dL 32-36 Automated erythrocyte distribution width ratio 13.0 % 10.0-14.5 Automated blood platelet count (count/volume) 152 10*3/uL 130-400 Automated blood platelet mean volume measurement 11.9 [foz_us] 7.4-10.4 Automated blood neutrophils/100 leukocytes 65 % 42-75 Automated blood lymphocytes/100 leukocytes 24 % 12-44 Blood monocytes/100 leukocytes 10 % 0-12 Automated blood eosinophils/100 leukocytes 1 % 0-10 Automated blood basophils/100 leukocytes 1 % 0-10 Blood neutrophils automated count (number/volume) 3.9 10*3 1.8-7.8 Blood lymphocytes automated count (number/volume) 1.5 10*3 1.0-4.0 Blood monocytes automated count (number/volume) 0.6 10*3 0.0-1.0 Automated eosinophil count 0.1 10*3/uL 0.0-0.3 Automated blood basophil count (count/volume) 0.0 10*3/uL 0.0-0.1 Whole blood basic metabolic panel - 07/13/16 10:10 Serum or plasma sodium measurement (moles/volume) 142 mmol/L 135-145 Serum or plasma potassium measurement (moles/volume) 4.1 mmol/L 3.6-5.0 Serum or plasma chloride measurement (moles/volume) 108 mmol/L 98-107 Carbon dioxide 24 mmol/L 21-32 Serum or plasma anion gap determination (moles/volume) 10 mmol/L 5-14 Serum or plasma urea nitrogen measurement (mass/volume) 16 mg/dL 7-18 Serum or plasma creatinine measurement (mass/volume) 1.05 mg/dL 0.60-1.30 Serum or plasma urea nitrogen/creatinine mass ratio 15 NRG Serum or plasma creatinine measurement with calculation of estimated glomerular filtration rate > NRG Serum or plasma glucose measurement (mass/volume) 109 mg/dL 70-105 Serum or plasma calcium measurement (mass/volume) 9.1 mg/dL 8.5-10.1 Methicillin resistant Staphylococcus aureus (MRSA) screening culture - 10:10 Methicillin resistant Staphylococcus aureus (MRSA) screening culture NEG [facility] Liver function panel (serum or plasma alk phos, alb, total and direct bili, total protein, ALT, AST) - 11/30/16 11:16 Serum or plasma total bilirubin measurement (mass/volume) 2.4 mg/dL 0.1-1.0 Serum or plasma alkaline phosphatase measurement (enzymatic activity/volume) 69 U/L 40-136 Serum or plasma aspartate aminotransferase measurement (enzymatic activity/ volume) 19 U/L 5-34 Serum or plasma alanine aminotransferase measurement (enzymatic activity/volume ) 18 U/L 0-55 Serum or plasma protein measurement (mass/volume) 6.9 g/dL 6.4-8.2 Serum or plasma albumin measurement (mass/volume) 4.2 g/dL 3.2-4.5 Bilirubin direct 0.6 mg/dL 0.0-0.3 Serum or plasma indirect bilirubin measurement (mass/volume) 1.8 mg/ dL [facility] Lipid 1996 panel - 11/30/16 11:16 Serum or plasma triglyceride measurement (mass/volume) 135 mg/dL <150 Serum or plasma cholesterol measurement (mass/volume) 142 mg/dL < 200 Serum or plasma cholesterol in HDL measurement (mass/volume) 36 mg/ dL 40-60 Cholesterol in LDL [mass/volume] in serum or plasma by direct assay 81 mg/dL 1-129 Serum or plasma cholesterol in VLDL measurement (mass/volume) 27 mg/ dL 5-40 Complete blood count (CBC) with automated white blood cell (WBC) differential - 06/01/18 14:48 Blood leukocytes automated count (number/volume) 6.8 10*3/uL 4.3-11.0 Blood erythrocytes automated count (number/volume) 4.95 10*6/uL 4.35-5.85 Venous blood hemoglobin measurement (mass/volume) 16.1 g/dL 13.3-17.7 Blood hematocrit (volume fraction) 48 % 40-54 Automated erythrocyte mean corpuscular volume 97 [foz_us] 80-99 Automated erythrocyte mean corpuscular hemoglobin (mass per erythrocyte) 33 pg 25-34 Automated erythrocyte mean corpuscular hemoglobin concentration measurement ( mass/volume) 34 g/dL 32-36 Automated erythrocyte distribution width ratio 13.4 % 10.0-14.5 Automated blood platelet count (count/volume) 194 10*3/uL 130-400 Automated blood platelet mean volume measurement 11.2 [foz_us] 7.4-10.4 Automated blood neutrophils/100 leukocytes 72 % 42-75 Automated blood lymphocytes/100 leukocytes 19 % 12-44 Blood monocytes/100 leukocytes 8 % 0-12 Automated blood eosinophils/100 leukocytes 1 % 0-10 Automated blood basophils/100 leukocytes 1 % 0-10 Blood neutrophils automated count (number/volume) 4.9 10*3 1.8-7.8 Blood lymphocytes automated count (number/volume) 1.3 10*3 1.0-4.0 Blood monocytes automated count (number/volume) 0.6 10*3 0.0-1.0 Automated eosinophil count 0.1 10*3/uL 0.0-0.3 Automated blood basophil count (count/volume) 0.0 10*3/uL 0.0-0.1 Comprehensive metabolic panel - 06/01/18 14:48 Serum or plasma sodium measurement (moles/volume) 143 mmol/L 135-145 Serum or plasma potassium measurement (moles/volume) 3.9 mmol/L 3.6-5.0 Serum or plasma chloride measurement (moles/volume) 106 mmol/L 98-107 Carbon dioxide 25 mmol/L 21-32 Serum or plasma anion gap determination (moles/volume) 12 mmol/L 5-14 Serum or plasma urea nitrogen measurement (mass/volume) 16 mg/dL 7-18 Serum or plasma creatinine measurement (mass/volume) 1.08 mg/dL 0.60-1.30 Serum or plasma urea nitrogen/creatinine mass ratio 15 NRG Serum or plasma creatinine measurement with calculation of estimated glomerular filtration rate > NRG Serum or plasma glucose measurement (mass/volume) 130 mg/dL 70-105 Serum or plasma calcium measurement (mass/volume) 9.7 mg/dL 8.5-10.1 Serum or plasma total bilirubin measurement (mass/volume) 2.6 mg/dL 0.1-1.0 Serum or plasma alkaline phosphatase measurement (enzymatic activity/volume) 69 U/L 40-136 Serum or plasma aspartate aminotransferase measurement (enzymatic activity/ volume) 24 U/L 5-34 Serum or plasma alanine aminotransferase measurement (enzymatic activity/volume ) 27 U/L 0-55 Serum or plasma protein measurement (mass/volume) 7.4 g/dL 6.4-8.2 Serum or plasma albumin measurement (mass/volume) 4.6 g/dL 3.2-4.5 Erythrocyte sedimentation rate by westergren method - 06/01/18 14:48 Erythrocyte sedimentation rate by westergren method 4 mm 0-30 Prostate specific ag [mass/volume] in serum or plasma - 06/01/18 14:48 Prostate specific ag [mass/volume] in serum or plasma 2.77 % 0.00-4.00 Encounters ACCT No. Visit Date/Time Discharge Status Pt. Type Provider Facility Loc./Unit Complaint [id number] 07/06/2018 11:03:00 07/06/2018 23:59:59 CLS Outpatient PAT WHELAN [facility] CARD CAD, PALPITATIONS [id number] 06/08/2018 11:43:00 06/08/2018 23:59:59 CLS Outpatient PAT WHELAN [facility] CARD CAD, PALPITATIONS [id number] 06/01/2018 14:33:00 06/01/2018 23:59:59 CLS Outpatient LALO MCCLELLAND APRN [facility] RAD TESTICULAR LUMP [id number] 10/22/2017 11:18:00 10/22/2017 23:59:59 CLS Outpatient PILO FORBES MD [facility] LAB I25.10 R07.9 R73.9 E78.2 R00.2 [id number] 11/30/2016 11:06:00 11/30/2016 23:59:59 CLS Outpatient PILO FORBES MD [facility] LAB I25.10 R07.9 [id number] 07/16/2016 10:16:00 07/17/2016 11:30:00 DIS Outpatient CHANDLER CRUZ MD [facility] SDC RIGHT ING HERNIA [id number] 07/13/2016 09:33:00 07/13/2016 11:47:00 DIS Outpatient CHANDLER CRUZ MD [facility] PREOP RIGHT INGUINAL HERNIA [id number] 02/08/2016 12:35:00 02/08/2016 14:50:00 DIS Emergency CHET CARLSON [facility] ER LOWER BACK PAIN [id number] 01/15/2016 12:05:00 01/15/2016 23:59:59 CLS Outpatient PILO FORBES MD [facility] CARD CAD,CHEST PAIN SYNDROME, IRREGULAR HEART BEAT [id number] 12/10/2015 15:01:00 12/10/2015 23:59:59 CLS Outpatient PILO FORBES MD [facility] RAD CHEST PAIN, CAD [id number] 11/06/2014 10:40:00 11/06/2014 23:59:59 CLS Outpatient PILO FORBES MD [facility] LAB HYPERLIPIDEMIA [id number] 04/06/2014 10:42:00 04/06/2014 23:59:59 CLS Outpatient PAT WHELAN [facility] LAB HLP [id number] 11/22/2013 10:04:00 11/22/2013 15:00:00 DIS Outpatient CHANDLER CRUZ MD [facility] SDC RECTAL PAIN;BURNING [id number] 11/17/2013 13:58:00 11/17/2013 23:59:59 CLS Outpatient CHANDLER CRUZ MD [facility] PREOP RECTAL PAIN; BURNING [id number] 06/26/2013 07:57:00 06/26/2013 23:59:59 CLS Outpatient PILO FORBES MD [facility] RAD AFIB,BRADYCARDIA,CAD [id number] 06/21/2013 12:45:00 06/21/2013 23:59:59 CLS Outpatient PILO FORBES MD [facility] CARD AFIB,BRADYCARDIA,CAD [id number] 04/04/2013 10:24:00 04/04/2013 23:59:59 CLS Outpatient PAT WHELAN [facility] LAB HYPERLIPIDEMIA [id number] 10/28/2012 19:45:00 10/29/2012 00:39:00 DIS Emergency KYM LEWIS, KELLY Layton [facility] ER URINARY ISSUES POST CATH [id number] 10/26/2012 09:36:00 10/27/2012 11:00:00 DIS Outpatient LEIDY LEWIS, PILO Suazo [facility] CATH CP,PAT,PALPITATIONS, FAILED STRESS TEST [id number] 09/28/2012 10:10:00 09/28/2012 23:59:59 CLS Outpatient JOSE ANTONIO CARBONEP [facility] LAB HYPERLIPIDEMIA [id number] 08/18/2018 17:48:00 ACT Emergency KADY LEWIS, ROSALVA Painting [facility] ER CHEST PAIN [id number] 08/07/2014 11:24:00 Document Registration [id number] 07/01/2012 10:43:00 Document Registration [id number] 04/28/2012 13:00:00 Document Registration [id number] 04/05/2012 10:03:00 Document Registration [id number] 01/01/2012 10:22:00 Document Registration [id number] 04/17/2011 13:00:00 Document Registration [id number] 01/16/2011 12:38:00 Document Registration [id number] 11/25/2010 15:35:00 Document Registration
[2018-08-18] MEDS ORDERED: ANTACID SUSP 30 ML UDC (MYLANTA) PO ONE (18:30)
[2018-08-18] MEDS ORDERED: LIDOCAINE 2% VISCOUS 15 ML UDC PO ONE (18:30)
[2018-08-18 18:33] LABS: BASOPHILS % (AUTO) 0 % (0-10); EOSINOPHILS # (AUTO) 0.1 10^3/uL (0.0-0.3); EOSINOPHILS % (AUTO) 1 % (0-10); HEMATOCRIT 46 % (40-54); HEMOGLOBIN 15.4 G/DL (13.3-17.7); LYMPHOCYTES # (AUTO) 0.4 X 10^3 (1.0-4.0); LYMPHOCYTES % (AUTO) 4 % (12-44); MEAN CORPUSCULAR HEMOGLOBIN 32 PG (25-34); MEAN CORPUSCULAR HGB CONC 34 G/DL (32-36); MEAN CORPUSCULAR VOLUME 96 FL (80-99); MEAN PLATELET VOLUME 11.5 FL (7.4-10.4); MONOCYTES # (AUTO) 0.6 X 10^3 (0.0-1.0); MONOCYTES % (AUTO) 6 % (0-12); NEUTROPHILS # (AUTO) 8.8 X 10^3 (1.8-7.8); NEUTROPHILS % (AUTO) 90 % (42-75); PLATELET COUNT 146 10^3/uL (130-400); RED CELL DISTRIBUTION WIDTH 13.3 % (10.0-14.5); WHITE BLOOD COUNT 9.8 10^3/uL (4.3-11.0)
[2018-08-18 18:37] LABS: PROTHROMBIN TIME PATIENT 12.9 SEC (12.2-14.7)
[2018-08-18 18:48] LABS: ALANINE AMINOTRANSFERASE 23 U/L (0-55); ALBUMIN 4.5 GM/DL (3.2-4.5); ALKALINE PHOSPHATASE 71 U/L (40-136); BUN/CREATININE RATIO 16; CALCIUM 9.2 MG/DL (8.5-10.1); CARBON DIOXIDE 25 MMOL/L (21-32); CHLORIDE 107 MMOL/L (98-107); CREATININE SERUM 1.08 MG/DL (0.60-1.30); GFR ESTIMATED > 60; GLUCOSE 120 MG/DL (70-105); MAGNESIUM 2.3 MG/DL (1.8-2.4); POTASSIUM 4.1 MMOL/L (3.6-5.0); SODIUM 141 MMOL/L (135-145); TOTAL PROTEIN 6.9 GM/DL (6.4-8.2)
[2018-08-18 18:50] LABS: BILIRUBIN,URINE NEGATIVE (NEGATIVE); CLARITY,URINE SLIGHTLY CLOUDY; COLOR,URINE AMBER; GLUCOSE, URINE (UA) NEGATIVE (NEGATIVE); KETONES,URINE NEGATIVE (NEGATIVE); LEUKOCYTE ESTERASE ,URINE 1+ (NEGATIVE); NITRITE,URINE NEGATIVE (NEGATIVE); PH,URINE 8 (5-9); PROTEIN,URINE NEGATIVE (NEGATIVE); UROBILINOGEN,URINE NORMAL (NORMAL)
[2018-08-18 18:54] LABS: MYOGLOBIN SERUM 57.7 NG/ML (10.0-92.0)
[2018-08-18 18:59] LABS: BACTERIA,URINE TRACE /HPF; SQUAMOUS EPITHELIAL CELL,UR RARE /HPF; WBC,URINE 0-2 /HPF
[2018-08-18 19:01] LABS: EOSINOPHILS % (MANUAL) 1 %; LYMPHOCYTES % (MANUAL) 4 %; MONOCYTES % (MANUAL) 5 %; NEUTROPHILS % (MANUAL) 90 %; RBC MORPH NORMAL
--- NOTE | 2018-08-18 19:39 | Diagnostic Imaging Report ---
CHEST 1 VIEW, AP/PA ONLY Indication: Chest pain Comparison: 10/26/2012 Findings: No focal airspace disease in the visualized lungs. Please note that the posterior lower lobes are poorly evaluated by portable radiography. No pleural effusion or pneumothorax. Normal cardiomediastinal silhouette. Impression: No acute cardiopulmonary process by portable radiography. Dictated by: Dictated on workstation # [id number]
--- NOTE | 2018-08-18 20:42 | ED Chest Pain ---
General Chief Complaint: Chest Pain Stated Complaint: CHEST PAIN Nursing Triage Note: Ambulatory to rm 7. Pt c/o CP that began last night. Pt describes pain as "rough" and feeling like "I swallowed a baseball. Pt reports hx of afib. Pt denies any other symptoms. Nursing Sepsis Screen: No Definite Risk Source: patient Exam Limitations: no limitations History of Present Illness Date Seen by Provider: Aug 18, 2018 Time Seen by Provider: 18:24 Initial Comments This 73 gentleman presents to the emergency room with epigastric pain that started last night. Pain was initially described as chest pain but on further elaboration it sounds like epigastric pain. Aleve helped symptoms at that time. He denies nausea, vomiting, diarrhea, or constipation. He has a temperature of 100.6. He has no shortness of air or cough. Patient does have a history of coronary artery disease with stent placement and paroxysmal atrial fibrillation. Allergies and Home Medications Allergies Coded Allergies: No Known Drug Allergies (Unverified , 07/13/16) Home Medications Acebutolol Hcl 200 Mg Capsule, 200 MG PO HS, (Reported) Aspirin 325 Mg Tabec, 325 MG PO DAILY@1700, (Reported) Atorvastatin Calcium 40 Mg Tablet, 40 MG PO DAILY@1200, (Reported) Cholestyramine/Aspartame 4 G/Pkt Packet, 2 G PO DAILY, (Reported) MIXES 1/2 PACKET BEFORE FIRST MEAL OF THE DAY Hydrocodone Bit/Acetaminophen 1 Each Tablet, 1-2 TAB PO 4-6HR PRN for PAIN Prescribed by: CHANDLER CRUZ on 07/16/16 1622 Naproxen Sodium 220 Mg Capsule, 220-440 MG PO DAILY PRN, (Reported) TAKES 1-2 OF A (220 MG) TABLET [place]-3/Dha/Epa/Fish Oil 1 Each Capsule, 1,000 MG PO TID, (Reported) Omeprazole 20 Mg Tablet., 20 MG PO DAILY Prescribed by: KELLY DOW on 08/18/182058 Pantoprazole Sodium 40 Mg Tablet., 40 MG PO DAILY@1700, (Reported) Patient Home Medication List Home Medication List Reviewed: Yes Review of Systems Review of Systems Constitutional: see HPI EENTM: No Symptoms Reported Respiratory: No Symptoms Reported Cardiovascular: No Symptoms Reported Gastrointestinal: See HPI Genitourinary: No Symptoms Reported Musculoskeletal: no symptoms reported Skin: no symptoms reported Psychiatric/Neurological: No Symptoms Reported Endocrine: No Symptoms Reported Past Gxryken-Unbfvw-Kvkkih Hx Patient Social History Alcohol Use: Denies Use Recreational Drug Use: No Type Used: Cigarettes Former Smoker, Quit: May 31, 1969 Recent Foreign Travel: No Contact w/Someone Who Travel: No Recent Infectious Disease Expo: No Recent Hopitalizations: No Physical Abuse: No Sexual Abuse: No Immunizations Up To Date Tetanus Booster (TDap): More than 5yrs PED Vaccines UTD: Yes Date of Influenza Vaccine: Feb 17, 2016 Seasonal Allergies Seasonal Allergies: Yes Past Medical History Surgeries: Yes (CYSTITIS SURGERY, 3 BOWEL FISTULA SURG) Coronary Stent, Gallbladder Respiratory: Yes Cardiac: Yes (HX-A FIB ) Atrial Fibrillation (Paroxysmal), Coronary Artery Disease, High Cholesterol, Hypertension Neurological: No Reproductive Disorders: No Sexually Transmitted Disease: No HIV/AIDS: No Gastrointestinal: Yes Gastroesophageal Reflux Musculoskeletal: Yes Endocrine: No Loss of Vision: Bilateral Hearing Impairment: Denies Cancer: No Psychosocial: No Integumentary: No Blood Disorders: No Adverse Reaction/Blood Tranf: No (N/A) Family Medical History No Pertinent Family Hx Physical Exam Vital Signs Vital Signs - First Documented 08/18/18 17:48 Temp 100.6 Pulse 67 Resp 15 B/P (MAP) 149/83 (105) Pulse Ox 95 O2 Delivery Room Air Capillary Refill : Less Than 3 Seconds Height, Weight, BMI Height: 6'2.00" Weight: 212lbs. 4.0oz. 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 as Tested Skin: Normal Color, Warm/Dry Progress/Results/Core Measures Results/Orders Lab Results Laboratory Tests Test 08/18/18 18:00 08/18/18 18:45 Range/Units White Blood Count 9.8 4.3-11.0 10^3/uL Red Blood Count 4.79 4.35-5.85 10^6/uL Hemoglobin 15.4 13.3-17.7 G/DL Hematocrit 46 40-54 % Mean Corpuscular Volume 96 80-99 FL Mean Corpuscular Hemoglobin 32 25-34 PG Mean Corpuscular Hemoglobin Concent 34 32-36 G/DL Red Cell Distribution Width 13.3 10.0-14.5 % Platelet Count 146 130-400 10^3/uL Mean Platelet Volume 11.5 H 7.4-10.4 FL Neutrophils (%) (Auto) 90 H 42-75 % Lymphocytes (%) (Auto) 4 L 12-44 % Monocytes (%) (Auto) 6 0-12 % Eosinophils (%) (Auto) 1 0-10 % Basophils (%) (Auto) 0 0-10 % Neutrophils # (Auto) 8.8 H 1.8-7.8 X 10^3 Lymphocytes # (Auto) 0.4 L 1.0-4.0 X 10^3 Monocytes # (Auto) 0.6 0.0-1.0 X 10^3 Eosinophils # (Auto) 0.1 0.0-0.3 10^3/uL Basophils # (Auto) 0.0 0.0-0.1 10^3/uL Neutrophils % (Manual) 90 % Lymphocytes % (Manual) 4 % Monocytes % (Manual) 5 % Eosinophils % (Manual) 1 % Blood Morphology Comment NORMAL Prothrombin Time 12.9 12.2-14.7 SEC INR Comment 1.0 0.8-1.4 Activated Partial Thromboplast Time 26 24-35 SEC Sodium Level 141 135-145 MMOL/L Potassium Level 4.1 3.6-5.0 MMOL/L Chloride Level 107 98-107 MMOL/L Carbon Dioxide Level 25 21-32 MMOL/L Anion Gap 9 5-14 MMOL/L Blood Urea Nitrogen 17 7-18 MG/DL Creatinine 1.08 0.60-1.30 MG/DL Estimat Glomerular Filtration Rate > 60 BUN/Creatinine Ratio 16 Glucose Level 120 H 70-105 MG/DL Calcium Level 9.2 8.5-10.1 MG/DL Corrected Calcium 8.8 8.5-10.1 MG/DL Magnesium Level 2.3 1.8-2.4 MG/DL Total Bilirubin 3.0 H 0.1-1.0 MG/DL Aspartate Amino Transf (AST/SGOT) 25 5-34 U/L Alanine Aminotransferase (ALT/SGPT) 23 0-55 U/L Alkaline Phosphatase 71 40-136 U/L Myoglobin 57.7 10.0-92.0 NG/ML Troponin I < 0.028 <0.028 NG/ML Total Protein 6.9 6.4-8.2 GM/DL Albumin 4.5 3.2-4.5 GM/DL Lipase 62 8-78 U/L Urine Color GEORGE H Urine Clarity SLIGHTLY CLOUDY Urine pH 8 5-9 Urine Specific [place] 1.010 L 1.016-1.022 Urine Protein NEGATIVE NEGATIVE Urine Glucose (UA) NEGATIVE NEGATIVE Urine Ketones NEGATIVE NEGATIVE Urine Nitrite NEGATIVE NEGATIVE Urine Bilirubin NEGATIVE NEGATIVE Urine Urobilinogen NORMAL NORMAL MG/DL Urine Leukocyte Esterase 1+ H NEGATIVE Urine RBC (Auto) NEGATIVE NEGATIVE Urine RBC 2-5 H /HPF Urine WBC 0-2 /HPF Urine Squamous Epithelial Cells RARE /HPF Urine Crystals NONE /LPF Urine Bacteria TRACE /HPF Urine Casts NONE /LPF Urine Mucus SMALL H /LPF Urine Culture Indicated YES Micro Results Microbiology 08/18/18 Influenza Types A,B Antigen (MARCO ANTONIO) - Final, Complete My Orders Orders - KELLY MEJÍA MD Cbc With Automated Diff (08/18/18 18:24) Magnesium (08/18/18 18:24) Chest 1 View, Ap/Pa Only (08/18/18 18:24) Ekg Tracing (08/18/18 18:24) Cardiac Profile 1 (08/18/18 18:24) Comprehensive Metabolic Panel (08/18/18 18:24) Myoglobin Serum (08/18/18 18:24) Protime With Inr (08/18/18 18:24) Partial Thromboplastin Time (08/18/18 18:24) O2 (08/18/18 18:24) Monitor-Rhythm Ecg Trace Only (08/18/18 18:24) Saline Lock/Iv-Start (08/18/18 18:24) Lipase (08/18/18 18:24) Lidocaine 2% Viscous 15 Ml (Xylocaine Vi (08/18/18 18:30) Antacid Suspension (Mylanta Suspension (08/18/18 18:30) Influenza A And B Antigens (08/18/18 18:24) Ua Culture If Indicated (08/18/18 18:24) Manual Differential (08/18/18 18:00) Urine Culture (08/18/18 18:45) Pantoprazole Tablet (Protonix Tablet) (08/18/18 21:00) Medications Given in ED Vital Signs/I&O 08/18/18 08/18/18 08/18/18 17:48 17:48 21:18 Temp 100.6 97.7 Pulse 67 71 Resp 15 16 B/P (MAP) 149/83 (105) 115/85 (95) Pulse Ox 95 97 O2 Delivery Room Air Room Air Room Air Blood Pressure Mean: 105 Progress Progress Note : Progress Note Patient did have improvement in symptoms with a GI cocktail. Because of his history of coronary artery disease, cardiac workup was also pursued. There were no significant abnormalities noted. Protonix was given prior to dismissal. See discharge instructions. Initial ECG Impression Date: Aug 18, 2018 Initial ECG Impression Time: 17:55 Initial ECG Rate: 67 Initial ECG Rhythm: Normal Sinus Initial ECG Intervals: Normal Initial ECG Impression: Normal Comment Normal sinus rhythm. No ST elevation or depression. No ischemic changes. No abnormal intervals or axis deviation. Diagnostic Imaging Diagonstic Imaging: Xray Plain Films/CT/US/NM/MRI: chest Comments Chest x-ray viewed by me and report reviewed. See report below: NAME: YUN WITT [facility] REC#: [id number] PT STATUS: REG ER : 1945 PHYSICIAN: KELLY MEJÍA MD ADMIT DATE: 08/18/18/ER Signed Date of Exam:08/18/18 CHEST 1 VIEW, AP/PA ONLY CHEST 1 VIEW, AP/PA ONLY Indication: Chest pain Comparison: 10/26/2012 Findings: No focal airspace disease in the visualized lungs. Please note that the posterior lower lobes are poorly evaluated by portable radiography. No pleural effusion or pneumothorax. Normal cardiomediastinal silhouette. Impression: No acute cardiopulmonary process by portable radiography. Dictated by: Dictated on workstation # [id number] Dict: 08/18/181935 Trans: 08/18/181936 [facility] [id number] Interpreted by: ANGELES FOSTER MD Electronically signed by: ANGELES FOSTER MD 08/18/18 1937 Departure Impression Primary Impression: Epigastric pain Additional Impression: Febrile illness Disposition: 01 HOME, SELF-CARE Condition: Improved Departure-Patient Inst. Decision time for Depature: 20:41 Referrals: SENTHIL VASQUEZ MD (PCP/Family) Primary Care Physician Patient Instructions: Acute Abdomen (Belly Pain), Chest Pain (DC) Add. Discharge Instructions: You may take Tylenol (acetaminophen) up to 1000 mg every 6 hours as needed for pain or fever. However, avoid NSAID medications such as ibuprofen or naproxen for treatment of pain. This may worsen your stomach pain. Take omeprazole daily as prescribed. You may additionally take Pepcid ( famotidine) and/or Tums for treatment of your upper abdominal pain. Follow-up with Dr. Vasquez as soon as possible. Also follow-up with Dr. Nicholson as soon as possible. Return to the emergency room if you have worsening symptoms. All discharge instructions reviewed with patient and/or family. Voiced understanding. Scripts Omeprazole (Omeprazole) 20 Mg Tablet. 20 MG PO DAILY, #30 TAB Prov: KELLY MEJÍA MD 08/18/18 Copy Copies To 1: SENTHIL VASQUEZ MD Copies To 2: PILO NICHOLSON MD, JOSHUA T MD Aug 18, 2018 20:42
[2018-08-18] MEDS ORDERED: OMEP20TA7 PO (20:59)
[2018-08-18] MEDS ORDERED: PANTOPRAZOLE 40 MG (PROTONIX) TAB PO ONE (21:00)
[2018-08-18 21:18] VITALS: BP 115/85
== END 2018-08-18 21:18 | disposition home or self-care (01) ==
LOC: EDUNIT# 17:46 → ER 17:48
DX: R10.13 Epigastric pain (principal); R50.9 Fever, unspecified; R07.9 Chest pain, unspecified; I48.0 Paroxysmal atrial fibrillation; I25.10 Atherosclerotic heart disease of native coronary artery without angina pectoris; E78.00 Pure hypercholesterolemia, unspecified; I10 Essential (primary) hypertension; K21.9 Gastro-esophageal reflux disease without esophagitis; Z95.5 Presence of coronary angioplasty implant and graft; Z79.82 Long term (current) use of aspirin; Z87.891 Personal history of nicotine dependence; Z98.890 Other specified postprocedural states
CPT/HCPCS: 36415; 71045; 80053; 81000; 83690; 83735; 83874; 84484; 85007; 85027; 85610; 85730; 87088; 87804; 93041

== ENCOUNTER → 2018-11-04 | Outpatient (CLI) | payer MEDICARE, OTHER ==
[~2018-11-04] MED LIST changes: +OMEP20TA7 PO
[2018-11-04 11:30] LABS: ALANINE AMINOTRANSFERASE 25 U/L (0-55); ALBUMIN 4.5 GM/DL (3.2-4.5); ALKALINE PHOSPHATASE 65 U/L (40-136); BILIRUBIN,TOTAL 2.5 MG/DL (0.1-1.0); BUN/CREATININE RATIO 14; CALCIUM 9.5 MG/DL (8.5-10.1); CARBON DIOXIDE 24 MMOL/L (21-32); CHLORIDE 109 MMOL/L (98-107); CHOLESTEROL 138 MG/DL (< 200); CREATININE SERUM 1.03 MG/DL (0.60-1.30); GFR ESTIMATED > 60; GLUCOSE 109 MG/DL (70-105); HDL CHOLESTEROL 36 MG/DL (40-60); POTASSIUM 3.9 MMOL/L (3.6-5.0); SODIUM 141 MMOL/L (135-145); TOTAL PROTEIN 6.8 GM/DL (6.4-8.2); TRIGLYCERIDES 148 MG/DL (<150); VLDL CHOLESTEROL 30 MG/DL (5-40)
== END ==
LOC: LAB 10:54
PROVIDERS: ATTEND Internal Medicine Cardiovascular Disease
DX: I25.10 Atherosclerotic heart disease of native coronary artery without angina pectoris (principal); E78.5 Hyperlipidemia, unspecified
CPT/HCPCS: 36415; 80053; 80061

== ENCOUNTER 2019-04-15 12:52 | Emergency (ER) | payer MEDICARE, OTHER ==
[~2019-04-15] VITALS: Ht 187.9 cm; Wt 95.7 kg
[2019-04-15 13:41] LABS: BASOPHILS # (AUTO) 0.1 10^3/uL (0.0-0.1); BASOPHILS % (AUTO) 1 % (0-10); EOSINOPHILS # (AUTO) 0.1 10^3/uL (0.0-0.3); EOSINOPHILS % (AUTO) 1 % (0-10); HEMATOCRIT 43 % (40-54); HEMOGLOBIN 14.2 G/DL (13.3-17.7); LYMPHOCYTES # (AUTO) 1.5 X 10^3 (1.0-4.0); LYMPHOCYTES % (AUTO) 15 % (12-44); MEAN CORPUSCULAR HEMOGLOBIN 32 PG (25-34); MEAN CORPUSCULAR HGB CONC 33 G/DL (32-36); MEAN CORPUSCULAR VOLUME 97 FL (80-99); MEAN PLATELET VOLUME 11.4 FL (7.4-10.4); MONOCYTES # (AUTO) 0.8 X 10^3 (0.0-1.0); MONOCYTES % (AUTO) 8 % (0-12); NEUTROPHILS # (AUTO) 8.2 X 10^3 (1.8-7.8); NEUTROPHILS % (AUTO) 77 % (42-75); PLATELET COUNT 174 10^3/uL (130-400); RED CELL DISTRIBUTION WIDTH 13.1 % (10.0-14.5); WHITE BLOOD COUNT 10.6 10^3/uL (4.3-11.0)
--- NOTE | 2019-04-15 13:42 | ED GI ---
General Chief Complaint: Rect Problems Stated Complaint: BLOOD IN STOOL Nursing Triage Note: PT AMBULATE TO TRIAGE WITH C/O BLOOD IN STOOL. PT STATES THERE WAS NOT BLOOD IN THE WATER BUT THERE BLOOD MIXED WITH THE FECES. PT STATES STOOL HAS BEEN HARD AND DIFFICULT TO COME OUT. Sepsis Screen: No Definite Risk Source of Information: Patient Exam Limitations: No Limitations History of Present Illness Date Seen by Provider: Apr 15, 2019 Time Seen by Provider: 13:18 Initial Comments Here with report of noting blood on his stool today and last night. He did take something to help with bowel movements. This was something that he uses 2 tablespoons and a drink and then drinks it. He states that did allow him to go this morning. He did note some blood on the stool today. It's not necessarily when he is wiping or in the water but it is on the stool. He states it is red. Does have some pain at the rectum just on the inside. States it feels scratchy. Does have history of hemorrhoids but does not think he has one of those now. Denies nausea or vomiting. Denies abdominal pain or fevers. Timing/Duration: 12-24 Hours Severity/Quality: Mild Location: Other (rectal) Radiation: No Radiation Activities at Onset: None Modifying Factors: Worsens With Defecating Associated Symptoms: No Back Pain, No Fever/Chills, No Fatigue, No Nausea/Vomiting, No Shortness of Air, No Swelling/Mass in Abdomen, No Weakness Allergies and Home Medications Allergies Coded Allergies: No Known Drug Allergies (Unverified , 07/13/16) Home Medications Acebutolol Hcl 200 Mg Capsule, 200 MG PO HS, (Reported) Aspirin 325 Mg Tabec, 325 MG PO DAILY@1700, (Reported) Atorvastatin Calcium 40 Mg Tablet, 40 MG PO DAILY@1200, (Reported) Cholestyramine/Aspartame 4 G/Pkt Packet, 2 G PO DAILY, (Reported) MIXES 1/2 PACKET BEFORE FIRST MEAL OF THE DAY Hydrocodone Bit/Acetaminophen 1 Each Tablet, 1-2 TAB PO 4-6HR PRN for PAIN Prescribed by: CHANDLER CRUZ on 07/16/16 1622 Naproxen Sodium 220 Mg Capsule, 220-440 MG PO DAILY PRN, (Reported) TAKES 1-2 OF A (220 MG) TABLET [place]-3/Dha/Epa/Fish Oil 1 Each Capsule, 1,000 MG PO TID, (Reported) Omeprazole 20 Mg Tablet., 20 MG PO DAILY Prescribed by: KELLY DOW on 08/18/182058 Pantoprazole Sodium 40 Mg Tablet.dr, 40 MG PO DAILY@1700, (Reported) Patient Home Medication List Home Medication List Reviewed: Yes Review of Systems Review of Systems Constitutional: see HPI Respiratory: No Symptoms Reported Cardiovascular: No Symptoms Reported Gastrointestinal: See HPI, Constipated; Denies Diarrhea; Rectal Bleeding Genitourinary: No Symptoms Reported Musculoskeletal: no symptoms reported Psychiatric/Neurological: No Symptoms Reported Past Fwxeioq-Vabrgy-Wwtpme Hx Past Med/Social Hx: Reviewed Nursing Past Med/Soc Hx Patient Social History Alcohol Use: Past History Recreational Drug Use: No Smoking Status: Former Smoker Type Used: Cigarettes Former Smoker, Quit: May 31, 1969 Recent Foreign Travel: No Contact w/Someone Who Travel: No Recent Infectious Disease Expo: No Recent Hopitalizations: No Physical Abuse: No Sexual Abuse: No Mistreated: No Fear: No Immunizations Up To Date Tetanus Booster (TDap): More than 5yrs PED Vaccines UTD: Yes Date of Influenza Vaccine: Feb 17, 2016 Seasonal Allergies Seasonal Allergies: Yes Past Medical History Surgeries: Yes (CYSTITIS SURGERY, 3 BOWEL FISTULA SURG) Coronary Stent, Gallbladder Respiratory: Yes Cardiac: Yes (HX-A FIB ) Atrial Fibrillation, Coronary Artery Disease, High Cholesterol, Hypertension Neurological: No Reproductive Disorders: No Sexually Transmitted Disease: No HIV/AIDS: No Genitourinary: No Gastrointestinal: Yes Gastroesophageal Reflux Musculoskeletal: Yes Endocrine: No HEENT: No Loss of Vision: Bilateral Hearing Impairment: Denies Cancer: No Psychosocial: No Integumentary: No Blood Disorders: No Adverse Reaction/Blood Tranf: No (N/A) Family Medical History Reviewed Nursing Family Hx No Pertinent Family Hx Physical Exam Vital Signs Vital Signs - First Documented 04/15/19 12:55 Temp 36.9 Pulse 59 Resp 18 B/P (MAP) 150/70 (96) O2 Delivery Room Air Capillary Refill : Less Than 3 Seconds Height/Weight/BMI Height: 6'2.00" Weight: 212lbs. 4.0oz. 96.893834us; 27.00 BMI Method:Stated General Appearance: WD/WN, no apparent distress HEENT: PERRL/EOMI, pharynx normal Neck: full range of motion, supple Respiratory: lungs clear, normal breath sounds Cardiovascular: regular rate, rhythm, no murmur Gastrointestinal: non tender, soft Rectal: heme positive stool (left lateral aspect just inside.); No hemorrhoids, No mass; tenderness Extremities: non-tender, normal inspection Back: normal inspection, no CVA tenderness, no vertebral tenderness Neurologic/Psychiatric: alert, oriented x 3 Skin: normal color, warm/dry Progress/Results/Core Measures Results/Orders Lab Results Laboratory Tests Test 04/15/19 13:15 Range/Units White Blood Count 10.6 4.3-11.0 10^3/uL Red Blood Count 4.40 4.35-5.85 10^6/uL Hemoglobin 14.2 13.3-17.7 G/DL Hematocrit 43 40-54 % Mean Corpuscular Volume 97 80-99 FL Mean Corpuscular Hemoglobin 32 25-34 PG Mean Corpuscular Hemoglobin Concent 33 32-36 G/DL Red Cell Distribution Width 13.1 10.0-14.5 % Platelet Count 174 130-400 10^3/uL Mean Platelet Volume 11.4 H 7.4-10.4 FL Neutrophils (%) (Auto) 77 H 42-75 % Lymphocytes (%) (Auto) 15 12-44 % Monocytes (%) (Auto) 8 0-12 % Eosinophils (%) (Auto) 1 0-10 % Basophils (%) (Auto) 1 0-10 % Neutrophils # (Auto) 8.2 H 1.8-7.8 X 10^3 Lymphocytes # (Auto) 1.5 1.0-4.0 X 10^3 Monocytes # (Auto) 0.8 0.0-1.0 X 10^3 Eosinophils # (Auto) 0.1 0.0-0.3 10^3/uL Basophils # (Auto) 0.1 0.0-0.1 10^3/uL Sodium Level 142 135-145 MMOL/L Potassium Level 4.1 3.6-5.0 MMOL/L Chloride Level 108 H 98-107 MMOL/L Carbon Dioxide Level 25 21-32 MMOL/L Anion Gap 9 5-14 MMOL/L Blood Urea Nitrogen 12 7-18 MG/DL Creatinine 1.07 0.60-1.30 MG/DL Estimat Glomerular Filtration Rate > 60 BUN/Creatinine Ratio 11 Glucose Level 129 H 70-105 MG/DL Calcium Level 8.9 8.5-10.1 MG/DL Corrected Calcium 8.8 8.5-10.1 MG/DL Total Bilirubin 1.7 H 0.1-1.0 MG/DL Aspartate Amino Transf (AST/SGOT) 22 5-34 U/L Alanine Aminotransferase (ALT/SGPT) 22 0-55 U/L Alkaline Phosphatase 67 40-136 U/L Total Protein 6.4 6.4-8.2 GM/DL Albumin 4.1 3.2-4.5 GM/DL My Orders Orders - ROSALVA HILLMAN MD Ed Iv/Invasive Line Start (04/15/19 13:08) Fecal Occult Bedside (04/15/19 13:08) Cbc With Automated Diff (04/15/19 13:08) Comprehensive Metabolic Panel (04/15/19 13:08) Vital Signs/I&O 04/15/19 12:55 Temp 36.9 Pulse 59 Resp 18 B/P (MAP) 150/70 (96) O2 Delivery Room Air Blood Pressure Mean: 96 POS Progress Progress Note : Progress Note Seen and evaluated. Rectal exam done. No obvious external hemorrhoids. Does have a little tenderness just inside the rectal verge without obvious mass. No obvious gross blood. Was heme positive. No stool ball noted. We will check basic labs. Last colonoscopy 4 years ago without problems. The patient. Monitor patient. 1420: I did discuss the case with Dr. Campbell. Labs reviewed and no significant findings. We will do outpatient supportive care and have him follow- up with Dr. Campbell Wednesday or early this week. Patient is to call the doctor's office on Wednesday for appointment. Discharged home with return precautions. Patient verbalize understanding instructions and agreement with plan. Departure Impression Primary Impression: Rectal bleeding Additional Impression: Acute anal fissure Disposition: HOME, SELF-CARE Condition: Stable Departure-Patient Inst. Decision time for Depature: 14:21 Referrals: ROSHAN CAMPBELL FLOYD R MD (PCP/Family) Primary Care Physician Patient Instructions: Anal Fissure, Bloody Stools, Adult (DC) Add. Discharge Instructions: All discharge instructions reviewed with patient and/or family. Voiced understanding. Call Dr. Campbell's office on Wednesday first thing for appointment that day or soon afterwards. Return for persistent or worsening rectal bleeding, increasing pain, vomiting, fever or other concerns as needed. He should take MiraLAX or the generic one half capful twice daily to keep stools soft. You may increase or decrease the dose to keep stools and normal soft range. He may use [id number] preparation H ointment or cream per package directions. Drink plenty of fluids. Copy Copies To 1: ROSHAN CAMPBELL TIMOTHY D MD Apr 15, 2019 13:42 POS
[2019-04-15 14:00] LABS: ALANINE AMINOTRANSFERASE 22 U/L (0-55); ALBUMIN 4.1 GM/DL (3.2-4.5); ALKALINE PHOSPHATASE 67 U/L (40-136); BILIRUBIN,TOTAL 1.7 MG/DL (0.1-1.0); BUN/CREATININE RATIO 11; CALCIUM 8.9 MG/DL (8.5-10.1); CARBON DIOXIDE 25 MMOL/L (21-32); CHLORIDE 108 MMOL/L (98-107); CREATININE SERUM 1.07 MG/DL (0.60-1.30); GFR ESTIMATED > 60; GLUCOSE 129 MG/DL (70-105); POTASSIUM 4.1 MMOL/L (3.6-5.0); SODIUM 142 MMOL/L (135-145); TOTAL PROTEIN 6.4 GM/DL (6.4-8.2)
[2019-04-15 14:33] VITALS: BP 136/70
== END 2019-04-15 14:40 | disposition home or self-care (01) ==
LOC: EDUNIT# 12:52 → ER 12:53
DX: K62.5 Hemorrhage of anus and rectum (principal); K60.0 Acute anal fissure; I48.91 Unspecified atrial fibrillation; I25.10 Atherosclerotic heart disease of native coronary artery without angina pectoris; I10 Essential (primary) hypertension; E78.00 Pure hypercholesterolemia, unspecified; K21.9 Gastro-esophageal reflux disease without esophagitis; Z79.82 Long term (current) use of aspirin; Z87.891 Personal history of nicotine dependence; Z95.5 Presence of coronary angioplasty implant and graft
CPT/HCPCS: 36415; 80053; 82274; 85025

== ENCOUNTER 2019-04-24 14:07 | Emergency (ER) | payer MEDICARE, OTHER ==
[~2019-04-24] VITALS: Ht 187.9 cm; Wt 96.3 kg
[2019-04-24] MEDS ORDERED: ASPIRIN 81 MG CHEW (CHILDREN'S ASA) PO ONE (14:15)
[2019-04-24] MEDS: NITROGLYCERIN 0.4 MG SL TABS BTL 25'S SL PRN ×3 (14:23→14:50)
--- NOTE | 2019-04-24 14:34 | ED Chest Pain ---
General Chief Complaint: Chest Pain Source: patient Exam Limitations: no limitations (ROSALVA HILLMAN MD) History of Present Illness Date Seen by Provider: Apr 24, 2019 Time Seen by Provider: 14:09 Initial Comments Here from Dr. Nicholson's office with report of question of ST elevation in leads 2, 3 and aVF in the setting of active chest pain. Patient states that he's had central nonradiating chest pain that is mild and feels like an ache in the last 4 days. Report of vomiting or diarrhea. No report of sweating or breathing problems. Timing/Duration: 3-4 days Severity/Quality: mild, moderate, aching Location: central Radiation: no radiation Activities at Onset: none Prior CP/Workup: cardiac cath, stress test Modifying Factors: worse with exercise; improves with rest ASA po COMMUNITY DEVELOPMENT DIRECTOR: No NTG SL COMMUNITY DEVELOPMENT DIRECTOR: No Associated Symptoms: No abdominal pain, No back pain, No diaphoresis, No dizziness, No nausea/vomiting, No shortness of breath, No weakness (ROSALVA HILLMAN MD) Allergies and Home Medications Allergies Coded Allergies: No Known Drug Allergies (Unverified , 07/13/16) Home Medications Acebutolol Hcl 200 Mg Capsule, 200 MG PO HS, (Reported) Aspirin 325 Mg Tabec, 325 MG PO DAILY@1700, (Reported) Atorvastatin Calcium 40 Mg Tablet, 40 MG PO DAILY@1200, (Reported) Cholestyramine/Aspartame 4 G/Pkt Packet, 2 G PO DAILY, (Reported) MIXES 1/2 PACKET BEFORE FIRST MEAL OF THE DAY Hydrocodone Bit/Acetaminophen 1 Each Tablet, 1-2 TAB PO 4-6HR PRN for PAIN Prescribed by: CHANDELR CRUZ on 07/16/16 1622 Naproxen Sodium 220 Mg Capsule, 220-440 MG PO DAILY PRN, (Reported) TAKES 1-2 OF A (220 MG) TABLET Orefield-3/Dha/Epa/Fish Oil 1 Each Capsule, 1,000 MG PO TID, (Reported) Omeprazole 20 Mg Tablet., 20 MG PO DAILY Prescribed by: KELLY DOW on 08/18/182058 Pantoprazole Sodium 40 Mg Tablet., 40 MG PO DAILY@1700, (Reported) Patient Home Medication List Home Medication List Reviewed: Yes (ROSALVA HILLMAN MD) Review of Systems Review of Systems Constitutional: see HPI EENTM: No Symptoms Reported Respiratory: No Symptoms Reported Cardiovascular: Chest Pain; Denies Edema Gastrointestinal: Denies Diarrhea, Denies Nausea, Denies Vomiting Genitourinary: No Symptoms Reported Musculoskeletal: no symptoms reported (ROSALVA HILLMAN MD) All Other Systems Reviewed Negative Unless Noted: Yes (ROSALVA HILLMAN MD) Past Whyebzb-Qujvxo-Dsdflj Hx Past Med/Social Hx: Reviewed Nursing Past Med/Soc Hx (ROSALVA HILLMAN MD) Patient Social History Alcohol Use: Denies Use Recreational Drug Use: No Smoking Status: Former Smoker Type Used: Cigarettes Former Smoker, Quit: May 31, 1969 Recent Hopitalizations: No (ROSALVA HILLMAN MD) Immunizations Up To Date Tetanus Booster (TDap): More than 5yrs PED Vaccines UTD: Yes Date of Influenza Vaccine: Feb 17, 2016 (ROSALVA HILLMAN MD) Seasonal Allergies Seasonal Allergies: Yes (ROSALVA HILLMAN MD) Past Medical History Surgeries: Yes (CYSTITIS SURGERY, 3 BOWEL FISTULA SURG) Coronary Stent, Gallbladder Respiratory: Yes Cardiac: Yes (HX-A FIB ) Atrial Fibrillation, Coronary Artery Disease, High Cholesterol, Hypertension Neurological: No Reproductive Disorders: No Sexually Transmitted Disease: No HIV/AIDS: No Genitourinary: No Gastrointestinal: Yes Gastroesophageal Reflux Musculoskeletal: Yes Endocrine: No HEENT: No Loss of Vision: Bilateral Hearing Impairment: Denies Cancer: No Psychosocial: No Integumentary: No Blood Disorders: No Adverse Reaction/Blood Tranf: No (N/A) (ROSALVA HILLMAN MD) Family Medical History Reviewed Nursing Family Hx (ROSALVA HILLMAN MD) No Pertinent Family Hx (ROSALVA HILLMAN MD) Physical Exam Vital Signs Vital Signs - First Documented 04/24/19 14:07 Temp 36.8 Pulse 60 Resp 18 B/P (MAP) 155/70 (98) Pulse Ox 96 O2 Delivery Room Air (MENDOZA VILLANUEVA) Vital Signs Capillary Refill : (ROSALVA HILLMAN MD) Height, Weight, BMI Height: 6'2.00" Weight: 212lbs. 4.0oz. 96.656360cx; 27.00 BMI Method:Stated General Appearance: No Apparent Distress, WD/WN HEENT: PERRL/EOMI, Pharynx Normal Neck: Full Range of Motion, Non Tender Respiratory: Lungs Clear, Normal Breath Sounds, No Accessory Muscle Use Cardiovascular: Regular Rate, Rhythm, No Murmur Gastrointestinal: Non Tender, Soft Extremity: Normal Range of Motion, Non Tender Neurologic/Psychiatric: Alert, Oriented x3 Skin: Normal Color, Warm/Dry (ROSALVA HILLMAN MD) Progress/Results/Core Measures Results/Orders Lab Results Laboratory Tests Test 04/24/19 15:09 04/24/19 17:19 Range/Units White Blood Count 7.3 4.3-11.0 10^3/uL Red Blood Count 4.36 4.35-5.85 10^6/uL Hemoglobin 14.0 13.3-17.7 G/DL Hematocrit 42 40-54 % Mean Corpuscular Volume 97 80-99 FL Mean Corpuscular Hemoglobin 32 25-34 PG Mean Corpuscular Hemoglobin Concent 33 32-36 G/DL Red Cell Distribution Width 13.0 10.0-14.5 % Platelet Count 173 130-400 10^3/uL Mean Platelet Volume 11.5 H 7.4-10.4 FL Neutrophils (%) (Auto) 66 42-75 % Lymphocytes (%) (Auto) 24 12-44 % Monocytes (%) (Auto) 9 0-12 % Eosinophils (%) (Auto) 1 0-10 % Basophils (%) (Auto) 1 0-10 % Neutrophils # (Auto) 4.8 1.8-7.8 X 10^3 Lymphocytes # (Auto) 1.8 1.0-4.0 X 10^3 Monocytes # (Auto) 0.6 0.0-1.0 X 10^3 Eosinophils # (Auto) 0.1 0.0-0.3 10^3/uL Basophils # (Auto) 0.0 0.0-0.1 10^3/uL Prothrombin Time 13.0 12.2-14.7 SEC INR Comment 1.0 0.8-1.4 Activated Partial Thromboplast Time 26 24-35 SEC Sodium Level 141 135-145 MMOL/L Potassium Level 4.2 3.6-5.0 MMOL/L Chloride Level 108 H 98-107 MMOL/L Carbon Dioxide Level 22 21-32 MMOL/L Anion Gap 11 5-14 MMOL/L Blood Urea Nitrogen 15 7-18 MG/DL Creatinine 0.97 0.60-1.30 MG/DL Estimat Glomerular Filtration Rate > 60 BUN/Creatinine Ratio 15 Glucose Level 142 H 70-105 MG/DL Calcium Level 9.2 8.5-10.1 MG/DL Corrected Calcium 9.1 8.5-10.1 MG/DL Magnesium Level 2.1 1.6-2.4 MG/DL Total Bilirubin 1.8 H 0.1-1.0 MG/DL Aspartate Amino Transf (AST/SGOT) 21 5-34 U/L Alanine Aminotransferase (ALT/SGPT) 23 0-55 U/L Alkaline Phosphatase 60 40-136 U/L Myoglobin 41.6 10.0-92.0 NG/ML Troponin I < 0.028 < 0.028 <0.028 NG/ML Total Protein 6.8 6.4-8.2 GM/DL Albumin 4.1 3.2-4.5 GM/DL (MENDOZA VILLANUEVA) Medications Given in ED Current Medications Medications Dose Ordered Sig/Dilip Route Start Time Stop Time Status Last Admin Dose Admin Al Hydrox/Mg Hydrox/Simethicone 30 ml ONCE ONCE PO 04/24/19 15:00 04/24/19 15:01 DC 04/24/19 14:58 30 ML Aspirin 324 mg ONCE ONCE PO 04/24/19 14:15 04/24/19 14:16 DC 04/24/19 14:21 324 MG Iohexol 100 ml ONCE ONCE IV 04/24/19 17:00 04/24/19 17:01 DC 04/24/19 18:02 100 ML Lidocaine HCl 15 ml ONCE ONCE PO 04/24/19 15:00 04/24/19 15:01 DC 04/24/19 14:58 15 ML Nitroglycerin 0.4 mg UD PRN SL 04/24/19 14:30 04/24/19 14:50 DC 04/24/19 14:50 0.4 MG Sodium Chloride 10 ml NEEDED PRN IV 04/24/19 17:00 04/24/19 18:02 10 ML Sodium Chloride 100 ml ONCE ONCE IV 04/24/19 17:00 04/24/19 17:01 DC 04/24/19 18:02 80 ML Sodium Chloride 500 ml @ 0 mls/hr Q0M ONCE IV 04/24/19 17:40 04/24/19 17:42 DC 04/24/19 18:12 500 MLS/HR (MENDOZA VILLANUEVA) Vital Signs/I&O 04/24/19 04/24/19 14:07 14:10 Temp 36.8 Pulse 60 Resp 18 B/P (MAP) 155/70 (98) Pulse Ox 96 O2 Delivery Room Air Room Air (MENDOZA VILLANUEVA) Progress Progress Note : Progress Note Seen and evaluated. IV, labs, chest x-ray and EKG ordered. ASA 324 mg by mouth. Nitroglycerin sublingual for chest pain. Monitor patient. 1630: Patient noted to have elevated bilirubin. Initially we had intended to do gallbladder ultrasound within patient reported that he had his gallbladder out. We switch to CT abdomen and pelvis with contrast. We will give hydration afterwards. Patient did receive GI cocktail and Pepcid 20 mg IV and this helped his pain. Nitroglycerin did not change his pain complaint at all. It would appear that this is more related to stomach problems and not heart. We will repeat troponin. Pending CT scan.. (ROSALVA HILLMAN MD) Progress Note : Time: 18:58 Progress Note Delta troponin and CT of the abdomen pelvis are negative. GI cocktail did seem to give him some relief. Follow-up with primary care. Plan to put him on Carafate and PPI. The patient states that he took some Tums last night when he was having some similar abdominal pain and it did seem to make it better at that time. He does have a scope set up by Dr. Brown from Dr. Vasquez's office. Previously his rectal fissures were taken care of by Dr. Cruz. (MENDOZA VILLANUEVA) Initial ECG Impression Date: Apr 24, 2019 Initial ECG Impression Time: 14:12 Initial ECG Rate: 59 Initial ECG Rhythm: Normal Sinus Initial ECG Comparisson: No Previous ECG Available Comment Sinus rhythm with no loss. No evidence of ST elevation SD. Similar to previous o f 08/18/18. Interpreted by me. (ROSALVA HILLMAN MD) Diagnostic Imaging Diagonstic Imaging: Xray Plain Films/CT/US/NM/MRI: chest Comments [facility]. POS [place], [place] POS NAME: YUN WITT [employer] REC#: [id number] PT STATUS: REG ER : 1945 PHYSICIAN: ROSALVA HILLMAN MD ADMIT DATE: 04/24/19/ER Draft POSDate of Exam:04/24/19 CHEST 1 VIEW, AP/PA ONLY INDICATION: Worsening chest pain. EXAMINATION: Portable chest at 2:46 p.m. FINDINGS: Heart size and pulmonary vascularity are normal. Lungs are clear. There are no effusions or pneumothoraces. IMPRESSION: Negative chest. Dictated on workstation # [id number] Dict: 04/24/19 1517 Trans: 04/24/19 1518 [id number] Interpreted by: ROSALVA HOROWITZ MD Electronically signed by: (ROSALVA HILLMAN MD) Diagonstic Imaging: CT Plain Films/CT/US/NM/MRI: abdomen, pelvis Comments NAME: YUN WITT [employer] REC#: [id number] PT STATUS: REG ER : 1945 PHYSICIAN: ROSALVA HILLMAN MD ADMIT DATE: 04/24/19/ER Signed POSDate of Exam:04/24/19 CT ABDOMEN/PELVIS W PROCEDURE: CT abdomen and pelvis with contrast. TECHNIQUE: Multiple contiguous axial images were obtained through the abdomen and pelvis after administration of intravenous contrast. Auto Exposure Controls were utilized during the CT exam to meet ALARA standards for radiation dose reduction. DATE: April 24, 2019. COMPARISON: Testicular ultrasound June 01, 2018. INDICATION: 74-year-old male, abdominal pain. FINDINGS: There are mild linear opacities in the left lower lobe consistent with mild atelectasis or scarring. The additional visualized portions of the lung bases are grossly clear. The heart is not enlarged. There is no pericardial effusion. The liver is normal in size and contour. There is no identified liver lesion. The main, right, and left portal veins are patent. The patient is status post cholecystectomy. There is no biliary ductal dilation. The main pancreatic duct is not abnormally dilated. Unremarkable appearance of the pancreatic parenchyma. The spleen is normal in size. There is an accessory splenule on axial image 15. The adrenal glands are unremarkable. There is a large low-attenuation left renal mass on axial image 28 measuring up to approximately 11.9 x 9.3 cm in axial extent with internal attenuation of 7 Hounsfield units diagnostic for a benign left renal cyst. The urinary collecting systems are not distended. There is no identified renal or ureteral stone. The urinary bladder is grossly unremarkable. The intestinal tract is not distended. The appendix is well seen on axial image 52 and adjacent sequential images. There is no evidence of acute appendicitis. There is a very tiny fat-containing umbilical hernia. There is no free intraperitoneal air. There is no drainable fluid collection. There are atherosclerotic calcifications. There is no identified abnormally enlarged lymph node in the abdomen or pelvis which meets CT size criteria for adenopathy. 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 There are bilateral sacroiliac degenerative changes. There are multilevel degenerative changes of the spine. There is no identified acute bony abnormality. IMPRESSION: CT ABDOMEN AND PELVIS. 1. No identified acute abnormality in the abdomen or pelvis. 2. Incidental findings as above. Dictated by: Dictated on workstation # [id number] Dict: 04/24/191805 Trans: 04/24/191843 [facility] [id number] Interpreted by: KIMBERLY ESPINOZA MD Electronically signed by: KIMBERLY ESPINOZA MD 04/24/191843 Reviewed: Reviewed by Me (MENDOZA VILLANUEVA) Departure Impression Primary Impression: GERD (gastroesophageal reflux disease) Qualified Codes: K21.9 - Gastro-esophageal reflux disease without esophagitis Additional Impression: Rectal fissure Disposition: 01 HOME, SELF-CARE Condition: Stable Departure-Patient Inst. Decision time for Depature: 19:13 (MENDOZA VILLANUEVA) Referrals: SENTHIL VASQUEZ MD (PCP/Family) Primary Care Physician Patient Instructions: Acid Reflux (Gastroesophageal Reflux Disease) in Adults, Anal Fissure (DC), Chest Pain That Is Not Caused by the Heart (DC) Add. Discharge Instructions: Make a follow-up appointment with Dr. Nicholson, cardiology. Keep your follow-up appointment with Dr. Brown, General Surgery. Carafate 1 tablet half an hour prior to meals and at bedtime, 4 times daily for the next 2 weeks. Pantoprazole 20 mg twice a day for the next 4 weeks. All discharge instructions reviewed with patient and/or family. Voiced understanding. Scripts Sucralfate (Carafate) 1 Gm Tablet 1 GM PO QID for 14 Days, #56 TAB 0 Refills Prov: MENDOZA VILLANUEVA 04/24/19 Pantoprazole Sodium (Pantoprazole Sodium) 20 Mg Tablet. 20 MG PO BID for 30 Days, #60 TAB 0 Refills Prov: MENDOZA VILLANUEVA 04/24/19 ROSALVA HILLMAN MD Apr 24, 2019 14:34 MENDOZA FLORES Apr 24, 2019 19:01 POS
--- NOTE | 2019-04-24 14:34 | NUR ---
2ND NITRO GIVEN NO CHANGE IN PAIN
[2019-04-24] MEDS ORDERED: FAMOTIDINE 20MG/2ML IV (PEPCID) IV STA (14:51)
[2019-04-24] MEDS ORDERED: ANTACID SUSP 30 ML UDC (MYLANTA) PO ONE (15:00)
[2019-04-24] MEDS ORDERED: LIDOCAINE 2% VISCOUS 15 ML UDC PO ONE (15:00)
--- NOTE | 2019-04-24 15:00 | NUR ---
TO ROOM PATIENT CAN'T TELL IN DIFFERENCE IN CHEST PAIN AFTER NITRO REPORTS BURNNG IN EPIGASTIC AREA.
[2019-04-24 15:19] LABS: BASOPHILS % (AUTO) 1 % (0-10); EOSINOPHILS # (AUTO) 0.1 10^3/uL (0.0-0.3); EOSINOPHILS % (AUTO) 1 % (0-10); HEMATOCRIT 42 % (40-54); LYMPHOCYTES # (AUTO) 1.8 X 10^3 (1.0-4.0); LYMPHOCYTES % (AUTO) 24 % (12-44); MEAN CORPUSCULAR HEMOGLOBIN 32 PG (25-34); MEAN CORPUSCULAR HGB CONC 33 G/DL (32-36); MEAN CORPUSCULAR VOLUME 97 FL (80-99); MEAN PLATELET VOLUME 11.5 FL (7.4-10.4); MONOCYTES # (AUTO) 0.6 X 10^3 (0.0-1.0); MONOCYTES % (AUTO) 9 % (0-12); NEUTROPHILS # (AUTO) 4.8 X 10^3 (1.8-7.8); NEUTROPHILS % (AUTO) 66 % (42-75); PLATELET COUNT 173 10^3/uL (130-400); WHITE BLOOD COUNT 7.3 10^3/uL (4.3-11.0)
--- NOTE | 2019-04-24 15:19 | Diagnostic Imaging Report ---
INDICATION: Worsening chest pain. EXAMINATION: Portable chest at 2:46 p.m. FINDINGS: Heart size and pulmonary vascularity are normal. Lungs are clear. There are no effusions or pneumothoraces. IMPRESSION: Negative chest. Dictated by: Dictated on workstation # [id number]
--- NOTE | 2019-04-24 15:30 | NUR ---
TO ROOM PATIENT REPORTS CAN'T TELL DIFFERENCE AFTER GI COCKTAIL AND PEPSID.
[2019-04-24 15:39] LABS: ALANINE AMINOTRANSFERASE 23 U/L (0-55); ALBUMIN 4.1 GM/DL (3.2-4.5); ALKALINE PHOSPHATASE 60 U/L (40-136); BILIRUBIN,TOTAL 1.8 MG/DL (0.1-1.0); BUN/CREATININE RATIO 15; CALCIUM 9.2 MG/DL (8.5-10.1); CARBON DIOXIDE 22 MMOL/L (21-32); CHLORIDE 108 MMOL/L (98-107); CREATININE SERUM 0.97 MG/DL (0.60-1.30); GFR ESTIMATED > 60; GLUCOSE 142 MG/DL (70-105); MAGNESIUM 2.1 MG/DL (1.6-2.4); POTASSIUM 4.2 MMOL/L (3.6-5.0); SODIUM 141 MMOL/L (135-145); TOTAL PROTEIN 6.8 GM/DL (6.4-8.2)
--- NOTE | 2019-04-24 16:26 | NUR ---
SONO TO BEDSIDE TO DO
[2019-04-24] MEDS ORDERED: HOLD METFORMIN - RECEIVED CONTRAST 20 ML VIAL IV SCH (17:00)
[2019-04-24] MEDS ORDERED: NS 100 ML (IVPB) BAG IV ONE (17:00)
[2019-04-24] MEDS ORDERED: CATHETER FLUSH 10 ML SYR IV PRN (17:00)
[2019-04-24] MEDS ORDERED: IOHEXOL 350 MG/ML 100 ML (OMNIPAQUE 350) VIAL IV ONE (17:00)
[2019-04-24] MEDS ORDERED: NS IV 500 ML 500 ML IV ONE (17:40)
--- NOTE | 2019-04-24 18:20 | Diagnostic Imaging Report ---
PROCEDURE: CT abdomen and pelvis with contrast. TECHNIQUE: Multiple contiguous axial images were obtained through the abdomen and pelvis after administration of intravenous contrast. Auto Exposure Controls were utilized during the CT exam to meet ALARA standards for radiation dose reduction. DATE: April 24, 2019. COMPARISON: Testicular ultrasound June 01, 2018. INDICATION: 74-year-old male, abdominal pain. FINDINGS: There are mild linear opacities in the left lower lobe consistent with mild atelectasis or scarring. The additional visualized portions of the lung bases are grossly clear. The heart is not enlarged. There is no pericardial effusion. The liver is normal in size and contour. There is no identified liver lesion. The main, right, and left portal veins are patent. The patient is status post cholecystectomy. There is no biliary ductal dilation. The main pancreatic duct is not abnormally dilated. Unremarkable appearance of the pancreatic parenchyma. The spleen is normal in size. There is an accessory splenule on axial image 15. The adrenal glands are unremarkable. There is a large low-attenuation left renal mass on axial image 28 measuring up to approximately 11.9 x 9.3 cm in axial extent with internal attenuation of 7 Hounsfield units diagnostic for a benign left renal cyst. The urinary collecting systems are not distended. There is no identified renal or ureteral stone. The urinary bladder is grossly unremarkable. The intestinal tract is not distended. The appendix is well seen on axial image 52 and adjacent sequential images. There is no evidence of acute appendicitis. There is a very tiny fat-containing umbilical hernia. There is no free intraperitoneal air. There is no drainable fluid collection. There are atherosclerotic calcifications. There is no identified abnormally enlarged lymph node in the abdomen or pelvis which meets CT size criteria for adenopathy. 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 There are bilateral sacroiliac degenerative changes. There are multilevel degenerative changes of the spine. There is no identified acute bony abnormality. IMPRESSION: CT ABDOMEN AND PELVIS. 1. No identified acute abnormality in the abdomen or pelvis. 2. Incidental findings as above. Dictated by: Dictated on workstation # [id number]
[2019-04-24] MEDS ORDERED: PANT20TA3 PO (19:18)
[2019-04-24] MEDS ORDERED: SUCR1TAB36 PO (19:18)
[2019-04-24 19:21] VITALS: BP 182/77
[2019-04-25] MEDS ORDERED: ACEB200C PO (12:50)
[2019-04-25] MEDS ORDERED: CHOL4PAC3 PO (12:50)
[2019-04-25] MEDS ORDERED: ASPI-808 PO (12:50)
[2019-04-25] MEDS ORDERED: PANT40TA3 PO (12:50)
[2019-04-25] MEDS ORDERED: ATOR40TA70 PO (12:50)
[2019-04-25] MEDS ORDERED: NAPR220C11 PO (12:50)
== END 2019-04-24 19:33 | disposition home or self-care (01) ==
LOC: EDUNIT# 14:07 → ER 14:08
DX: K21.9 Gastro-esophageal reflux disease without esophagitis (principal); K60.2 Anal fissure, unspecified; I48.91 Unspecified atrial fibrillation; I25.10 Atherosclerotic heart disease of native coronary artery without angina pectoris; I10 Essential (primary) hypertension; E78.00 Pure hypercholesterolemia, unspecified; Z79.82 Long term (current) use of aspirin; Z87.891 Personal history of nicotine dependence; Z95.5 Presence of coronary angioplasty implant and graft
CPT/HCPCS: 36415; 71045; 74177; 80053; 83735; 83874; 84484; 85025; 85610; 85730; 93005; 93041; 96361; 96374

== ENCOUNTER → 2019-04-25 | Outpatient (CLI) | payer MEDICARE, OTHER ==
[~2019-04-25] VITALS: Ht 187 cm; Wt 96.8 kg
[~2019-04-25] MED LIST changes: +ASPI-808 PO; +PANT20TA3 PO; +PANT40TA3 PO; +SUCR1TAB36 PO
== END | disposition home or self-care (01) ==
LOC: PREOP 05:36
PROVIDERS: ATTEND Surgery
DX: Z01.818 Encounter for other preprocedural examination (principal)

== ENCOUNTER 2019-05-02 12:51 | Day surgery (SDC) | payer MEDICARE, OTHER ==
[~2019-05-02] VITALS: Ht 188 cm; Wt 94.0 kg
[2019-05-02] MEDS ORDERED: PATIENT MAY USE OWN MEDS, ALL PO SCH (13:15)
[2019-05-02] MEDS ORDERED: REGADENOSON 0.4 MG/5 ML SYR (LEXISCAN) IV ONE (13:15)
[2019-05-02 14:08] LABS: INR 0.9 (0.8-1.4); PROTHROMBIN TIME PATIENT 12.7 SEC (12.2-14.7)
[2019-05-02] MEDS ORDERED: DOCU-143 PO (14:22)
[2019-05-02] MEDS ORDERED: SUCR1TAB PO (14:22)
[2019-05-02] MEDS ORDERED: PANT20TA3 PO (14:22)
[2019-05-02] MEDS ORDERED: OMG1KC PO (14:22)
--- NOTE | 2019-05-02 14:27 | NUR ---
WENT OVER THE EXT MED HX WITH THE PATIENT AND HE VERIFIED HOW HE TAKES EACH MEDICATION. HE ALSO HAD A VERY DETAILED LIST WITH TIMES. HE TAKES ASPIRIN 325MG DAILY, STOOL SOFTENER BID, AND FISH OIL TID OTC.
[2019-05-02 14:55] LABS: HEMOGLOBIN 14.7 G/DL (13.3-17.7); MEAN PLATELET VOLUME 11.8 FL (7.4-10.4); RED CELL DISTRIBUTION WIDTH 13.2 % (10.0-14.5); WHITE BLOOD COUNT 7.1 10^3/uL (4.3-11.0)
[2019-05-02 15:07] LABS: ALANINE AMINOTRANSFERASE 19 U/L (0-55); ALBUMIN 4.3 GM/DL (3.2-4.5); ALKALINE PHOSPHATASE 67 U/L (40-136); BILIRUBIN,TOTAL 1.7 MG/DL (0.1-1.0); BUN/CREATININE RATIO 10; CALCIUM 9.2 MG/DL (8.5-10.1); CARBON DIOXIDE 24 MMOL/L (21-32); CHLORIDE 108 MMOL/L (98-107); CREATININE SERUM 1.04 MG/DL (0.60-1.30); GFR ESTIMATED > 60; GLUCOSE 107 MG/DL (70-105); POTASSIUM 4.3 MMOL/L (3.6-5.0); SODIUM 143 MMOL/L (135-145); TOTAL PROTEIN 6.7 GM/DL (6.4-8.2)
[2019-05-02 15:15] VITALS: BP 131/72
[2019-05-02] MEDS ORDERED: ASPIRIN 325 MG (5 GR) TABLET PO SCH (17:00)
[2019-05-02] MEDS: SUCRALFATE 1 GM (CARAFATE) TAB PO SCH (18:23)
[2019-05-02 19:07] VITALS: BP 129/71
[2019-05-02] MEDS: ACEBUTOLOL 200 MG (SECTRAL) CAPSULE PO SCH (21:29)
[2019-05-03] VITALS (12 sets, daily range): BP systolic 125–181; BP diastolic 55–86
[2019-05-03] MEDS: SUCRALFATE 1 GM (CARAFATE) TAB PO SCH ×4 (00:08→21:05)
[2019-05-03 04:23] LABS: HEMOGLOBIN 14.5 G/DL (13.3-17.7); MEAN PLATELET VOLUME 11.6 FL (7.4-10.4); RED CELL DISTRIBUTION WIDTH 13.1 % (10.0-14.5); WHITE BLOOD COUNT 7.4 10^3/uL (4.3-11.0)
[2019-05-03 04:50] LABS: ALANINE AMINOTRANSFERASE 13 U/L (0-55); ALKALINE PHOSPHATASE 62 U/L (40-136); BILIRUBIN,TOTAL 1.8 MG/DL (0.1-1.0); BUN/CREATININE RATIO 12; CARBON DIOXIDE 20 MMOL/L (21-32); CHLORIDE 109 MMOL/L (98-107); CHOLESTEROL 124 MG/DL (< 200); CREATININE SERUM 1.03 MG/DL (0.60-1.30); GFR ESTIMATED > 60; GLUCOSE 98 MG/DL (70-105); HDL CHOLESTEROL 36 MG/DL (40-60); POTASSIUM 3.8 MMOL/L (3.6-5.0); SODIUM 141 MMOL/L (135-145); TOTAL PROTEIN 6.1 GM/DL (6.4-8.2); TRIGLYCERIDES 153 MG/DL (<150); VLDL CHOLESTEROL 31 MG/DL (5-40)
[2019-05-03] MEDS ORDERED: CATHETER FLUSH 10 ML SYR IV PRN (07:15)
--- NOTE | 2019-05-03 07:18 | NUR ---
taken down for stress -
[2019-05-03] MEDS ORDERED: ASPIRIN E.C. 81 MG (ECOTRIN) TAB PO SCH (09:00)
[2019-05-03] MEDS ORDERED: PANTOPRAZOLE 40 MG (PROTONIX) TAB PO SCH (09:00)
[2019-05-03] MEDS ORDERED: REGADENOSON 0.4 MG/5 ML SYR (LEXISCAN) IV ONE (09:04)
--- NOTE | 2019-05-03 10:37 | NUR ---
HAD GOT CALL FROM JUANIS ABOUT PT -- THIS RN CHECK RM AND IT DID NOT LOOK LIKE HE WAS BACK TO FLOOR -- JUANIS WANTED PT TO HAVE NITRO TAB -- PT HAD GOT BACK TO ROOM AT 10 PER NA -- HE WAS IN BATHROOM SHAVING AND DOING AM CARES -- THIS RN WAS CALLING HER BACK AND SHE WAS ON FLOOR -- SHE WAS GOING TO SEE PT -- BUT HE WAS IN BATHROOM SHAVING -- DENIED AND DISCOMFORT AND CONTINUED TO DO HIS AM CARES -- THIS RN PUT IN ORDERS FOR NITRO TAB - AND PER PHARMACY THIS RN CALLED AND REQUESTED MED TO FLOOR -- NOT IN OMNICELL
[2019-05-03] MEDS ORDERED: NITROGLYCERIN 0.4 MG SL TABS BTL 25'S SL PRN (10:45)
--- NOTE | 2019-05-03 10:57 | NUR ---
PT CONTINUES O DENIES AND CHEST PAIN OR DISCOMFORT
--- NOTE | 2019-05-03 11:33 | Cardiology History & Physical ---
HPI-Cardiology Cardiology Consultation Date of Consultation 05/03/19 Date of Admission Time Seen by Provider: 08:30 Indication: Chest pain HPI Patient is a 74 y/o male with history of CAD with stent placement in 2012, presented to the office last week with active chest pain, was sent to the ER work up done and discharged home. Seen in the office again yesterday with complaints of intermittent chest pain, worse with exertion. Patient was admitted from the office for further evaluation. Upon interviewing patient this morning, he reports episodes of chest pain last night. Currently CP free and down to [facility] for stress test. Denies any dyspnea, dizziness, or syncope. Patient was evaluated in the ER last month for blood in stool, scheduled for colonoscopy [facility] Dr. Brown, however, patient cancelled as he was concerned with his recent chest pain. PMH-Cardiology Immunizations Up To Date Tetanus Booster (DTap): More than 5yrs Date of Influenza Vaccine: Feb 22, 2019 Seasonal Allergies Seasonal Allergies: No Surgeries Yes Gall Bladder, Coronary Stent Respiratory No Cardiovascular No Neurological No Reproductive System Hx Reproductive Disorders: No Sexually Transmitted Disease: No HIV/AIDS: No Genitourinary Yes Prostate Problems Gastrointestinal Yes Gastroesophageal Reflux Musculoskeletal No Endocrine No HEENT No Loss of Vision: Denies Hearing Impairment: Denies Cancer No Psychosocial No Integumentary No Blood Transfusions No Adverse Rxn to Transfusion: No (N/A) Social History Patient Social History Employed/Student: employed Alcohol Use: Denies Use Recreational Drug Use: No Smoking: Never smoker Recent Foreign Travel: No Contact w/other who traveled: No Family Hx Significant Family History: No Pertinent Family Hx Other noncontributory ROS-Cardiology Review of Systems General: No Chills, No Night Sweats HEENT: No Visual Changes, No Eye Pain, No Dysphasia Pulmonary: No Dyspnea, No Cough Cardiovascular: Chest Pain; No: Palpitations, Edema, Lt Headedness Gastrointestinal: Nausea, Melena; No: Vomiting, Abdominal Pain Genitourinary: No Dysuria, No Hematuria Musculoskeletal: No: neck pain, back pain Neurological: No: Weakness, Numbness, Change in speech, Confusion Home Medications & Allergies Allergies: Coded Allergies: No Known Drug Allergies (Unverified , 07/13/16) Home Medication List Reviewed: Yes Exam-Cardiology Vital Signs Vital Signs Date Time Temp Pulse Resp B/P (MAP) Pulse Ox O2 Delivery O2 Flow Rate FiO2 05/03/19 12:46 55 05/03/19 12:00 36.7 17 144/75 (98) 96 Room Air Exam General Appearance: Alert, Oriented X3, Cooperative, No Acute Distress HEENT: Atraumatic, PERRLA Respiratory: Clear to Auscultation, Normal Air Movement Cardiovascular: Regular Rate, Normal S1, Normal S2, No Murmurs Abdominal: Normal Bowel Sounds, Soft, No Tenderness, No Hepatosplenomegaly, No Masses Extremities: No Clubbing, No Cyanosis, No Edema, Normal Pulses, No Tend erness/Swelling Skin: No Rashes, No Breakdown, No Significant Lesion Neuro: Normal Gait, Normal Speech, Strength at 5/5 X4 Ext, Normal Tone, Sensation Intact Psych/Mental Status: Mental Status NL, Mood NL Results Labs Labs Laboratory Tests 05/02/19 15:59: Glucometer 98 05/03/19 04:00: White Blood Count 7.4, Red Blood Count 4.53, Hemoglobin 14.5, Hematocrit 44, Mean Corpuscular Volume 96, Mean Corpuscular Hemoglobin 32, Mean Corpuscular Hemoglobin Concent 33, Red Cell Distribution Width 13.1, Platelet Count 142, Mean Platelet Volume 11.6H, Sodium Level 141, Potassium Level 3.8, Chloride Level 109H, Carbon Dioxide Level 20L, Anion Gap 12, Blood Urea Nitrogen 12, Creatinine 1.03, Estimat Glomerular Filtration Rate > 60, BUN/Creatinine Ratio 12, Glucose Level 98, Calcium Level 9.0, Corrected Calcium 9.0, Total Bilirubin 1.8H, Aspartate Amino Transf (AST/SGOT) 18, Alanine Aminotransferase (ALT/SGPT) 13, Alkaline Phosphatase 62, Troponin I < 0.028, Total Protein 6.1L, Albumin 4.0, Triglycerides Level 153H, Cholesterol Level 124, LDL Cholesterol Direct 74, VLDL Cholesterol 31, HDL Cholesterol 36L A/P-Cardiology Admission Diagnosis Chest pain, unstable angina Coronary artery disease Hypertension Hyperlipidemia Admission Status: Observation (1) Chest pain Qualifiers: Status: Acute Assessment & Plan: Chest pain CAD HTN PAF Assessment/Plan Chest pain, nonspecific etiology, having significant pain for the past week on and off. Recurrent, seen in the emergency room last week. Underwent stress test this morning, results discussed below Coronary artery disease, history of PTCA and stent to the LAD done in September 2012 using 3.0x22 mm Resolute drug-eluting stent. Expanded to 3.25 mm. Otherwise nonobstructive disease and of course system. Most recent stress test July 2018 revealed no ischemia or infarct, having active chest pain on and off. planning for cardiac catheterization after having an abnormal stress test History of sick sinus syndrome with occasional episode of paroxysmal atrial fibrillation. Patient refused to take oral anticoagulation. Having occasional episodes of palpitation, continue to monitor [id number] score is 3, yearly risk of stroke without oral anticoagulation is 3.2 percent, he is maintained on aspirin, we discussed previously the use of oral anticoagulation and he prefers not to take it. Recurrent palpitation, Holter monitor done in July 2014 revealed occasional episode of PVC, PAC, ventricular bigeminy. He is maintained on acebutolol. Has had intolerance past Toprol and atenolol causing profound bradycardia. He is hesitant to change medications at this time. We will continue on the same medication continue to monitor his episodes palpitation. Hypertension, well controlled on the current medications, no changes were recommended. Hyperlipidemia, continue to monitor lipids Carotid stenosis, mild bilateral disease, nonobstructive disease, last ultrasound was done October 2018, continue to monitor. Patient reports recent blood in stool, was evaluated in the ER recently, planning for colonoscopy with Dr. Brown in the near future Patient was seen and evaluated with Ewelina, examination performed, management plan was discussed, agree with the current scribed note, I made few changes to the note using Italic font 74-year-old gentleman with history of coronary artery disease multiple intervention the past has been having recurrent chest pain on and off. On examination lungs were clear to auscultation, heart is regular rate and rhythm I admitted the patient directly from the office after evaluating him with active chest pain and decided to monitor him overnight which did not show any acute abnormality on his EKG or cardiac enzymes Stress test the low chest pain, responded to nitroglycerin Significant amount of ischemia involving the mid to apical anterior wall true apex and inferoapical segment I will proceed with cardiac catheterization possible PTCA Clinical Quality Measures DVT/VTE Risk/Contraindication: Risk Factor Score Per Nursin RFS Level Per Nursing on Admit: 2=Moderate EWELINA GREENFIELD May 03, 2019 11:33 PILO MAURICIO MD May 03, 2019 14:08 POS
[2019-05-03] MEDS ORDERED: HEParin (CATH LAB) 2,000 ML IV ONE (14:14)
[2019-05-03] MEDS ORDERED: LIDOCAINE 1% INJ 20 ML 20 ML VIAL ONE (14:14)
[2019-05-03] MEDS ORDERED: NS IV 1000 ML 1,000 ML ONE (14:29)
[2019-05-03] MEDS ORDERED: NS IV 1000 ML 1,000 ML IV SCH (14:30)
--- NOTE | 2019-05-03 15:31 | NUR ---
TAKEN DOWN FOR HEART CATH
--- NOTE | 2019-05-03 15:34 | Cardiac Procedure Note-CS/ASA ---
Pre-Procedure Note Pre-Op Procedure Note H&P Reviewed The H&P was reviewed, patient examined and no changes noted. Date H&P Reviewed: May 03, 2019 Time H&P Reviewed: 15:33 Conscious Sedation Pre-Proced Time 15:33 ASA Score 3 For ASA 3 and 4: Consider anesthesia and medical clearance. Also, for patients with a history of failed moderate sedation consider anesthesia. Airway Lungs Heart ASA score ASA 1: a normal healthy patient ASA 2: a patient with a mild systemic disease (mid diabetes, controlled hypertension, obesity x ASA 3: a patient with a severe systemic disease that limits activity (angina, COPD, prior Myocardial infarction) ASA 4: a patient with an incapacitating disease that is a constant threat to life (CHF, renal failure) ASA 5: a moribund patient not expected to survive 24 hrs. (ruptured aneurysm) ASA 6: a declared brain- patient whose organs are being harvested. For emergent operations, add the letter E after the classification Mallampati Classification Grade 3 Sedation Plan Analgesia, Amnesia, Plan communicated to team members, Discussed options with patient/fam, Discussed risks with patient/fam The patient is an appropriate candidate to undergo the planned procedure, sedation, and anesthesia. The patient immediately re-assessed prior to indication. PILO FORBES MD May 03, 2019 15:34 POS
[2019-05-03] MEDS ORDERED: fentaNYL INJECTION 100 MCG/2 ML AMP ONE (15:41)
[2019-05-03] MEDS ORDERED: NITRO DRIP 25000 MCG/D5W 0 ML IV ONE (15:41)
[2019-05-03] MEDS ORDERED: HEParin 1000 UNIT/ML (10ML VIAL) FOR BOLUS ONE (15:41)
[2019-05-03] MEDS ORDERED: MIDAZOLAM 5 MG/5 ML (VERSED) VIAL ONE (15:41)
--- NOTE | 2019-05-03 15:47 | STRESS TEST ---
DATE OF SERVICE: 05/03/2019 LEXISCAN MYOVIEW STRESS TEST REPORT REFERRING PHYSICIAN: Dr. Vasquez. Baseline heart rate is 54 baseline blood pressure 147/84. Baseline EKG is sinus rhythm with no ischemic changes. In summary, the patient was injected with 10.87 mCi of technetium-99 Myoview and the resting images were obtained. Then, the patient received 0.4 mg of Lexiscan followed by 30.4 mCi of technetium-99 Myoview. Throughout the test, there were no EKG changes. The resting and stress images were reviewed and compared in the short axis, horizontal long axis, and vertical long axis views. Review of the images showed reversible ischemia involving the mid to apical anterior wall, true apex and inferoapical segment and anterior septum. SSS 21. SDS 14. TID value 1.16. On the gated images, the left ventricle appeared to be normal size with normal contractility. Calculated ejection fraction 53%. CONCLUSION: 1. The patient tolerated Lexiscan well. 2. The patient had some chest pain resolved with nitroglycerin. 3. Reversible ischemia involving the mid to apical anterior wall, true apex inferoapical segment. 4. Normal left ventricular size with normal contractility. Calculated ejection fraction 53%. Job ID: [id number] DocumentID: [id number] Dictated Date: 05/03/2019 13:25:24 Donkey Doctor Date: 05/03/2019 15:47:02 Dictated By: PILO FORBES MD
[2019-05-03] MEDS ORDERED: ASPIRIN 325 MG (5 GR) TABLET ONE (16:41)
[2019-05-03] MEDS ORDERED: CLOPIDOGREL 300 MG (PLAVIX) TABLET PO ONE (16:42)
[2019-05-03] MEDS ORDERED: PATIENT MAY USE OWN MEDS, ALL PO SCH (16:45)
--- NOTE | 2019-05-03 16:47 | Cardiac Cath Report ---
Cardiac Cath Report Physician (s)/Philanthropy Officer (s) Physician PILO FORBES MD Pre-Procedure Diagnosis Pre-Procedure Diagnosis: Chest pain, coronary artery disease Post-Procedure Note Procedure Start Date: May 03, 2019 Name of Procedure: Left heart catheterization PTCA to LAD Findings/Procedure Note PROCEDURE NOTE: 74-year-old gentleman with history of coronary artery disease, has been having accelerating angina, had an abnormal stress test as scheduled for cardiac catheterization possible PTCA. After explaining the procedure to the patient, all pros and cons were explained, all questions were answered. The patient signed the consent and then he was placed on the cardiac catheterization laboratory. Groin was prepped SL fashion local anesthesia was used. Sheath placed in the right femoral artery. [place] right and left catheter were used to access the coronary system. Pigtail was used to access the left ventricular cavity. Left ventriculogram was not done, pressure was measured Patient was given 6000 units of heparin, has severe proximal LAD in-stent restenosis, I could not advance FL guide to the left coronary system, I used EBU 3.5, advanced to the left main then advanced BMW wire to the distal LAD and proceeded with multiple balloon inflation using 3 x 20 mm emerge balloon with inflation up to 12 lázaro expanding the balloon to 3.25 mm. Angiographic showed excellent results, the mid to distal LAD has moderate to severe stenosis fairly small artery. At the end of the procedure the sheath was removed. Closure device was used FINDINGS: Hemodynamics LV 155/19, end-diastolic pressure of 19 Aorta 165/75 mean of 110 ANATOMY: Left Main it is free of obstructive disease Left Anterior Descending has severe proximal stenosis within an old stent, subtotal occlusion, successful balloon angioplasty using emerge 3 x 20 mm with multiple inflation up to 12 lázaro expanding to 3.25 mm with excellent results. Residual stenosis is 0. The mid to distal LAD is tortuous with moderate to severe stenosis, fairly smaller artery. Closer monitoring is recommended Left Circumflex is moderate in size with mild disease nonobstructive disease Right Coronory Artery has [id number] disease nonobstructive disease LV Gram was not done pressure was measured CONCLUSION: 1. Severe proximal LAD in-stent restenosis with successful balloon angioplasty using multiple inflation with Emerge 3 x 20 medical case manager to 3.25 mm with excellent results 2. Moderate to severe mid to distal LAD stenosis, the artery is smaller in size, close monitoring is recommended 3. Mild to moderate disease in the circumflex and right coronary artery 4. Normal left ventricular end-diastolic pressure DISCUSSION AND RECOMMENDATION: continue with medical therapy, patient was started on aspirin and Plavix Anesthesia Type: Conscious Sedation Estimated blood loss (mL): 25 ml Contrast Amount: 103 ml Total Radiation Dose: 795 mGy Post-Procedure Diagnosis Post-operative diagnosis: Chest pain, Unstable angina Coronary artery disease Hypertension Hyperlipidemia (1) Chest pain Assessment & Plan: Chest pain CAD HTN PAF Qualifiers: PILO FORBES MD May 03, 2019 16:47 POS
[2019-05-03] MEDS: NS IV 1000 ML 1,000 ML IV SCH (17:41)
[2019-05-03] MEDS: ACEBUTOLOL 200 MG (SECTRAL) CAPSULE PO SCH (21:06)
[2019-05-04] VITALS: BP 118/72
[2019-05-04] MEDS: SUCRALFATE 1 GM (CARAFATE) TAB PO SCH (00:16)
[2019-05-04] MEDS: NS IV 1000 ML 1,000 ML IV SCH (01:02)
[2019-05-04 04:00] VITALS: BP 128/82
[2019-05-04 04:16] LABS: HEMOGLOBIN 14.7 G/DL (13.3-17.7); MEAN PLATELET VOLUME 11.9 FL (7.4-10.4); RED CELL DISTRIBUTION WIDTH 13.2 % (10.0-14.5); WHITE BLOOD COUNT 7.8 10^3/uL (4.3-11.0)
[2019-05-04 04:18] LABS: BUN/CREATININE RATIO 12; CARBON DIOXIDE 21 MMOL/L (21-32); CHLORIDE 108 MMOL/L (98-107); CREATININE SERUM 0.91 MG/DL (0.60-1.30); GFR ESTIMATED > 60; GLUCOSE 87 MG/DL (70-105); POTASSIUM 3.7 MMOL/L (3.6-5.0); SODIUM 142 MMOL/L (135-145)
[2019-05-04] MEDS ORDERED: ASPI-983 PO (07:46)
[2019-05-04] MEDS ORDERED: CLOP75TA28 PO (07:46)
--- NOTE | 2019-05-04 07:46 | Discharge Inst-Post CATH ---
Discharge Inst-CATH/EP Problems Reviewed?: Yes Post Cardiac Cath/EP D/C Inst Follow Up/Plan Appointment with Dr. FORBES's office next week <b>CARDIAC CATH/EP PROCEDURE DISCHARGE INSTRUCTIONS</b> ACTIVITY * Go Home directly and rest. * Limit activity of the leg (or wrist if it was used) for 7 days including aerobics, swimming, jogging, bicycling, etc. * Restrict stair-climbing for 7 days if possible, if not, climb up with your non-cath leg, then bring together on the same step. * Avoid lifting, pushing, pulling or excessive movement of the affected extremity for 7 days. * Customary sexual activity may be resumed after 2 days-use caution not to use a position that strains or causes pain to the affected extremity. * No driving for 24 hours. * NO SMOKING. * Avoid straining for bowel movements for 7 days. * Gentle walking on level ground is allowed. * Returning to work will depend on the type of procedure and the results. Your doctor will discuss this with you. CALL YOUR DOCTOR FOR ANY OF THE FOLLOWING: *If bleeding from the puncture site occurs- Apply gentle pressure to site with clean cloth and call your doctor or EMS. * If a knot or lump forms under the skin, increases in size, or causes pain. * If bruising appears to be worsening or moving further down your leg instead of disappearing. * Temperature above 101 F. CARE OF YOUR GROIN INCISION; * Bruising or purple discoloration of the skin near the puncture site is common. * You may shower only, no bathtub bathing for 5 days. Be careful to avoid slipping as your leg may feel stiff. * If a closure device was used on your femoral artery, please see the attached guide regarding care of the device and your leg. * Leave dressing on FOR 24 hours. CARE OF YOUR WRIST INCISION; * Bruising or purple discoloration of the skin near the puncture site is common. * You may shower. * DO NOT submerge wrist. * Leave dressing on FOR 24 hours. PILO FORBES MD May 04, 2019 07:46 POS
--- NOTE | 2019-05-04 07:49 | Cardiology Discharge Summary ---
Discharge Summary Hospital Course Problems Reviewed?: Yes Hospital Course Date of Admission: May 02, 2019 at 12:45 Admission Diagnosis : Family Physician/Provider: Nawaf Vasquez MD Date of Discharge: 05/04/19 Discharge Diagnosis: [ ] Hospital Course: [ Chest pain, nonspecific etiology, having significant pain for the past week on and off. Recurrent, seen in the emergency room last week. Abnormal stress test, cardiac catheterization with balloon plasty was then Coronary artery disease, history of PTCA and stent to the LAD done in September 2012 using 3.0x22 mm Resolute drug-eluting stent. Expanded to 3.25 mm. Otherwise nonobstructive disease and of course system. Had abnormal stress test, proceeded with cardiac catheterization and balloon angioplasty for in-stent restenosis 1. Severe proximal LAD in-stent restenosis with successful balloon angioplasty using multiple inflation with Emerge 3 x 20 plating stripper to 3.25 mm with excellent results 2. Moderate to severe mid to distal LAD stenosis, the artery is smaller in size, close monitoring is recommended 3. Mild to moderate disease in the circumflex and right coronary artery 4. Normal left ventricular end-diastolic pressure History of sick sinus syndrome with occasional episode of paroxysmal atrial fibrillation. Patient refused to take oral anticoagulation. Having occasional episodes of palpitation, continue to monitor [id number] score is 3, yearly risk of stroke without oral anticoagulation is 3.2 percent, he is maintained on aspirin, we discussed previously the use of oral anticoagulation and he prefers not to take it. Recurrent palpitation, Holter monitor done in July 2014 revealed occasional episode of PVC, PAC, ventricular bigeminy. He is maintained on acebutolol. Has had intolerance past Toprol and atenolol causing profound bradycardia. He is hesitant to change medications at this time. We will continue on the same medication continue to monitor his episodes palpitation. Hypertension, well controlled on the current medications, no changes were recommended. Hyperlipidemia, continue to monitor lipids Carotid stenosis, mild bilateral disease, nonobstructive disease, last ultrasound was done October 2018, continue to monitor. Patient reports recent blood in stool, was evaluated in the ER recently, planning for colonoscopy with Dr. Brown in the near future] Labs and Pending Lab Test: Laboratory Tests 05/04/19 03:30: White Blood Count 7.8, Red Blood Count 4.55, Hemoglobin 14.7, Hematocrit 44, Mean Corpuscular Volume 97, Mean Corpuscular Hemoglobin 32, Mean Corpuscular Hemoglobin Concent 33, Red Cell Distribution Width 13.2, Platelet Count 150, Mean Platelet Volume 11.9H, Sodium Level 142, Potassium Level 3.7, Chloride Level 108H, Carbon Dioxide Level 21, Anion Gap 13, Blood Urea Nitrogen 11, Creatinine 0.91, Estimat Glomerular Filtration Rate > 60, BUN/Creatinine Ratio 12, Glucose Level 87, Calcium Level 9.0 Home Meds Active Aspirin EC (Aspirin) 81 Mg Tablet.dr 81 Mg PO DAILY Clopidogrel (Clopidogrel Bisulfate) 75 Mg Tablet 75 Mg PO DAILY Reported Sucralfate 1 Gm Tablet 1 Gm PO 0000,0800,1430,1930 Pantoprazole Sodium 20 Mg Tablet.dr 20 Mg PO 1200,1700 Fish Oil 1,000 mg Capsule ([employer] 3 Polyunsat Fatty Acids) 1,000 Mg Cap 1,000 Mg PO 1200,1700,2200 Colace (Docusate Sodium) 100 Mg Capsule 100 Mg PO 1000,2200 Atorvastatin Calcium 40 Mg Tablet 40 Mg PO 1200 Acebutolol HCl 200 Mg Capsule 200 Mg PO 2200 Prevalite Packet (Cholestyramine/Aspartame) 4 Gm Powd.pack 2 Gm PO DAILY Aspirin 325 Mg Tablet 325 Mg PO 1700 Assessment/Pt DC Instructions Patient was educated on taking aspirin and Plavix Appointment with Dr. FORBES's office next week Angioplasty for instent restenosis was done. Orders-Post D/C & Referrals Pneu Vac Indicated: Yes Discharge Physical Examination Allergies: Coded Allergies: No Known Drug Allergies (Unverified , 07/13/16) General Appearance: No Apparent Distress, WD/WN HEENT: PERRL/EOMI, TMs Normal, Normal ENT Inspection, Pharynx Normal Respiratory: Chest Non Tender, Lungs Clear, Normal Breath Sounds, No Accessory Muscle Use, No Respiratory Distress Cardiovascular: Regular Rate, Rhythm, No Edema, No Gallop, No JVD, No Murmur, Normal Peripheral Pulses Gastrointestinal: Normal Bowel Sounds, No Organomegaly, No Pulsatile Mass, Non Tender, Soft Extremity: Normal Capillary Refill, Normal Inspection, Normal Range of Motion, Non Tender, No Calf Tenderness Skin: Normal Color, Warm/Dry Neurologic/Psychiatric: Alert, Oriented x3, No Motor/Sensory Deficits, Normal Mood/Affect, in tube conversion technician II-XII Norm as Tested Clinical Quality Measures DVT/VTE Risk/Contraindication: Risk Factor Score Per Nursin RFS Level Per Nursing on Admit: 2=Moderate PILO FORBES MD May 04, 2019 07:49 POS
[2019-05-04 08:00] VITALS: BP 144/73
[2019-05-04] MEDS ORDERED: CLOPIDOGREL 75 MG (PLAVIX) TABLET PO SCH (09:00)
[2019-05-04] MEDS ORDERED: ASPIRIN E.C. 81 MG (ECOTRIN) TAB PO SCH (09:00)
== END 2019-05-04 09:20 | disposition home or self-care (01) ==
LOC: CATH 12:51 → CSD 12:51 → CATH 05-04 09:20 → UNDODISOB 05-04 09:20
PROVIDERS: ATTEND Internal Medicine Cardiovascular Disease
DX: I25.110 Atherosclerotic heart disease of native coronary artery with unstable angina pectoris (principal); I10 Essential (primary) hypertension; E78.5 Hyperlipidemia, unspecified; I48.0 Paroxysmal atrial fibrillation; I49.5 Sick sinus syndrome; I65.23 Occlusion and stenosis of bilateral carotid arteries; K21.9 Gastro-esophageal reflux disease without esophagitis; Z79.82 Long term (current) use of aspirin; Z79.01 Long term (current) use of anticoagulants; Z79.899 Other long term (current) drug therapy
CPT/HCPCS: 36415; 78452; 80048; 80053; 80061; 82962; 83874; 84484; 85027; 85610; 85730; 93005; 93017; 93458; 96374

== ENCOUNTER → 2019-06-07 | Outpatient (CLI) | payer MEDICARE, OTHER ==
[~2019-06-07] MED LIST changes: +ASPI-983 PO; +CLOP75TA28 PO; +DOCU-143 PO; +SUCR1TAB PO
--- NOTE | 2019-06-07 10:18 | Diagnostic Imaging Report ---
PROCEDURE: US Scrotum. TECHNIQUE: Multiple real-time grayscale images were obtained over the scrotum in various projections bilaterally. INDICATION: Testicular cyst. COMPARISON: Correlation is made with prior ultrasound from 06/01/2018. FINDINGS: Right testicle measures 5.4 x 2.4 x 3.3 cm and the left testicle measures 5.0 x 2.5 x 2.8 cm. Cyst involving the inferior left testicle is stable at 17 mm x 13 mm x 14 mm. No other testicular mass is seen. There is blood flow to both testes. The right epididymis does contain two cysts. In aggregate, these measure 4.4 x 1.9 x 4.5 cm. Left epididymis is unremarkable. No hydrocele is seen. There is a varicocele on the left. IMPRESSION: 1. Stable left testicular cyst. 2. Right epididymal cysts. 3. Left varicocele. Dictated by: Dictated on workstation # [id number]
== END ==
LOC: RAD 08:48
PROVIDERS: ATTEND Specialist
DX: N44.2 Benign cyst of testis (principal); R30.0 Dysuria; I86.1 Scrotal varices; N50.3 Cyst of epididymis
CPT/HCPCS: 76870

== ENCOUNTER 2020-02-05 11:35 | Emergency (ER) | payer MEDICARE, OTHER ==
[~2020-02-05] VITALS: Ht 187 cm; Wt 95.0 kg
[~2020-02-05 11:35] MED LIST changes: +ACHYD1T PO; +ASPI-1238 PO; -ASPI-983 PO; -HYDR-3820 PO
--- NOTE | 2020-02-05 12:08 | ED GI ---
General Chief Complaint: Abdominal/GI Problems Stated Complaint: RECTAL BLEEDING Source of Information: Patient Exam Limitations: No Limitations History of Present Illness Date Seen by Provider: Feb 05, 2020 Time Seen by Provider: 12:04 Initial Comments To ER with reports of rectal bleeding since yesterday. He notices some blood on the toilet paper and "some blood on the turds". He denies having any bowel movements that consisted purely of blood. He denies any shortness of breath lightheadedness or chest pain. Denies any abdominal pain. He does report a bowl which that he can palpate at the rectum. He does report some Rectal discomfort when having a bowel movement. He had a similar episode about 7 months ago, was set up to see Dr. Brown for colonoscopy. However before that appointment he had to have a coronary stent and was subsequently put on aspirin and Plavix (which she remains on) and that postpone the colonoscopy. He hasn't had any recurrent symptoms until yesterday. Timing/Duration: 24 Hours Severity/Quality: Mild Location: Other (rectal) Radiation: No Radiation Activities at Onset: None Associated Symptoms: Denies Symptoms Allergies and Home Medications Allergies Coded Allergies: No Known Drug Allergies (Unverified , 07/13/16) Home Medications Acebutolol HCl 200 Mg Capsule, 200 MG PO 2200, (Reported) Aspirin 81 Mg Tablet., 81 MG PO DAILY Prescribed by: PILO FORBES on 05/04/19 0746 Atorvastatin Calcium 40 Mg Tablet, 40 MG PO 1200, (Reported) Cholestyramine/Aspartame 4 Gm Powd.pack, 2 GM PO DAILY, (Reported) Clopidogrel Bisulfate 75 Mg Tablet, 75 MG PO DAILY Prescribed by: PILO FORBES on 05/04/19 0746 Docusate Sodium 100 Mg Capsule, 100 MG PO 1000,2200, (Reported) [place] 3 Polyunsat Fatty Acids 1,000 Mg Cap, 1,000 MG PO 1200,1700,2200, (Reported) Pantoprazole Sodium 20 Mg Tablet., 20 MG PO 1200,1700, (Reported) Sucralfate 1 Gm Tablet, 1 GM PO 0000,0800,1430,1930, (Reported) Patient Home Medication List Home Medication List Reviewed: Yes Review of Systems Review of Systems Constitutional: see HPI EENTM: No Symptoms Reported Respiratory: No Symptoms Reported Cardiovascular: See HPI Gastrointestinal: See HPI Genitourinary: No Symptoms Reported Musculoskeletal: no symptoms reported Skin: no symptoms reported Psychiatric/Neurological: No Symptoms Reported Endocrine: No Symptoms Reported Hematologic/Lymphatic: No Symptoms Reported Past Jhyfcys-Jzjxjk-Boyetg Hx Patient Social History Type Used: Cigarettes Former Smoker, Quit: May 31, 1969 2nd Hand Smoke Exposure: Yes Recent Foreign Travel: No Contact w/Someone Who Travel: No Recent Hopitalizations: No Immunizations Up To Date Tetanus Booster (TDap): More than 5yrs PED Vaccines UTD: No Date of Influenza Vaccine: Feb 22, 2019 Seasonal Allergies Seasonal Allergies: No Past Medical History Surgeries: Yes Coronary Stent, Gallbladder Respiratory: No Currently Using CPAP: No Currently Using BIPAP: No Cardiac: No Atrial Fibrillation, Coronary Artery Disease, High Cholesterol, Hypertension Neurological: No Reproductive Disorders: No Sexually Transmitted Disease: No HIV/AIDS: No Genitourinary: Yes Prostate Problems Gastrointestinal: Yes Gastroesophageal Reflux Musculoskeletal: No Endocrine: No HEENT: No Loss of Vision: Denies Hearing Impairment: Denies Cancer: No Psychosocial: No Integumentary: No Blood Disorders: No Adverse Reaction/Blood Tranf: No (N/A) Family Medical History No Pertinent Family Hx Physical Exam Vital Signs Vital Signs - First Documented 02/05/20 11:59 Temp 37.1 Pulse 56 Resp 18 B/P (MAP) 152/82 (105) Pulse Ox 97 O2 Delivery Room Air Capillary Refill : Height/Weight/BMI Height: 6'2.00" Weight: 212lbs. 4.0oz. 96.135812oj; 26.87 BMI Method:Stated General Appearance: WD/WN, no apparent distress HEENT: PERRL/EOMI Respiratory: no respiratory distress, no accessory muscle use Gastrointestinal: normal bowel sounds, non tender, soft Genital/Rectal: other (right-sided hemorrhoid without active bleeding. There is some maceration of the anterior anus/perineum. There is a posterior midline fissure very small but it is tender.) Neurologic/Psychiatric: alert, normal mood/affect, oriented x 3 Skin: normal color, warm/dry Progress/Results/Core Measures Results/Orders Lab Results Laboratory Tests Test 02/05/20 12:19 Range/Units White Blood Count 6.1 4.3-11.0 10^3/uL Red Blood Count 4.68 4.35-5.85 10^6/uL Hemoglobin 14.8 13.3-17.7 G/DL Hematocrit 44 40-54 % Mean Corpuscular Volume 95 80-99 FL Mean Corpuscular Hemoglobin 32 25-34 PG Mean Corpuscular Hemoglobin Concent 33 32-36 G/DL Red Cell Distribution Width 13.2 10.0-14.5 % Platelet Count 166 130-400 10^3/uL Mean Platelet Volume 11.1 H 7.4-10.4 FL Neutrophils (%) (Auto) 69 42-75 % Lymphocytes (%) (Auto) 20 12-44 % Monocytes (%) (Auto) 9 0-12 % Eosinophils (%) (Auto) 1 0-10 % Basophils (%) (Auto) 1 0-10 % Neutrophils # (Auto) 4.2 1.8-7.8 X 10^3 Lymphocytes # (Auto) 1.2 1.0-4.0 X 10^3 Monocytes # (Auto) 0.5 0.0-1.0 X 10^3 Eosinophils # (Auto) 0.1 0.0-0.3 10^3/uL Basophils # (Auto) 0.0 0.0-0.1 10^3/uL Prothrombin Time 12.8 12.2-14.7 SEC INR Comment 0.9 0.8-1.4 Sodium Level 141 135-145 MMOL/L Potassium Level 4.2 3.6-5.0 MMOL/L Chloride Level 107 98-107 MMOL/L Carbon Dioxide Level 22 21-32 MMOL/L Anion Gap 12 5-14 MMOL/L Blood Urea Nitrogen 12 7-18 MG/DL Creatinine 1.07 0.60-1.30 MG/DL Estimat Glomerular Filtration Rate > 60 BUN/Creatinine Ratio 11 Glucose Level 110 H 70-105 MG/DL Calcium Level 9.2 8.5-10.1 MG/DL Corrected Calcium 8.8 8.5-10.1 MG/DL Total Bilirubin 2.6 H 0.1-1.0 MG/DL Aspartate Amino Transf (AST/SGOT) 23 5-34 U/L Alanine Aminotransferase (ALT/SGPT) 19 0-55 U/L Alkaline Phosphatase 70 40-136 U/L Total Protein 7.3 6.4-8.2 GM/DL Albumin 4.5 3.2-4.5 GM/DL My Orders Orders - MAN,PETER J PAN SHOVER Cbc With Automated Diff (02/05/20 12:02) Protime With Inr (02/05/20 12:02) Comprehensive Metabolic Panel (02/05/20 12:02) Vital Signs/I&O 02/05/20 11:59 Temp 37.1 Pulse 56 Resp 18 B/P (MAP) 152/82 (105) Pulse Ox 97 O2 Delivery Room Air Departure Impression Primary Impression: Hemorrhoid Disposition: HOME, SELF-CARE Condition: Stable Departure-Patient Inst. Decision time for Depature: 12:54 Referrals: ROSHAN BROWN FLOYD R MD (PCP/Family) Primary Care Physician Patient Instructions: Hemorrhoids Add. Discharge Instructions: 1. If he notices any increased bleeding return to the emergency room promptly. If you notice any lightheadedness chest pain or shortness of breath you should also return to the emergency room. Call Dr. Brown tomorrow to make an appointment to be seen this week for follow-up. Stool softener as directed. All discharge instructions reviewed with patient and/or family. Voiced understanding. Scripts Docusate Sodium (Colace) 100 Mg Capsule 100 MG PO BID, #30 CAP Prov: WINNIE MAN APRN 02/05/20 Copy Copies To 1: ROSHAN BROWN PETER J APRN Feb 05, 2020 12:08
--- NOTE | 2020-02-05 12:20 | NUR ---
PT DESCRIBES SMALL AMOUNT OF BLOOD ON HIS TISSUE WHEN HE HAS A BM; DESCRIBES IT BRIGHT RED IN COLOR AND STATES HE HAS A "BULGE" DOWN THERE IN HIS RECTUM. PT STATES HE HAD THIS PROBLEM SEVERAL MONTHS AGO BUT WASN'T ABLE TO F/U WITH A COLONOSCOPY DIRECTED DUE TO CARDIAC ISSUES AND THEN COVID. PT IS ON A BLOOD THINNER, PLAVIX 75MG.
[2020-02-05 12:31] LABS: BASOPHILS % (AUTO) 1 % (0-10); EOSINOPHILS # (AUTO) 0.1 10^3/uL (0.0-0.3); EOSINOPHILS % (AUTO) 1 % (0-10); HEMATOCRIT 44 % (40-54); HEMOGLOBIN 14.8 G/DL (13.3-17.7); LYMPHOCYTES # (AUTO) 1.2 X 10^3 (1.0-4.0); LYMPHOCYTES % (AUTO) 20 % (12-44); MEAN CORPUSCULAR HEMOGLOBIN 32 PG (25-34); MEAN CORPUSCULAR HGB CONC 33 G/DL (32-36); MEAN CORPUSCULAR VOLUME 95 FL (80-99); MEAN PLATELET VOLUME 11.1 FL (7.4-10.4); MONOCYTES # (AUTO) 0.5 X 10^3 (0.0-1.0); MONOCYTES % (AUTO) 9 % (0-12); NEUTROPHILS # (AUTO) 4.2 X 10^3 (1.8-7.8); NEUTROPHILS % (AUTO) 69 % (42-75); PLATELET COUNT 166 10^3/uL (130-400); WHITE BLOOD COUNT 6.1 10^3/uL (4.3-11.0)
[2020-02-05 12:43] LABS: ALBUMIN 4.5 GM/DL (3.2-4.5); CHLORIDE 107 MMOL/L (98-107); INR 0.9 (0.8-1.4); POTASSIUM 4.2 MMOL/L (3.6-5.0); PROTHROMBIN TIME PATIENT 12.8 SEC (12.2-14.7); SODIUM 141 MMOL/L (135-145)
[2020-02-05 12:44] LABS: CALCIUM 9.2 MG/DL (8.5-10.1)
[2020-02-05 12:45] LABS: GLUCOSE 110 MG/DL (70-105); TOTAL PROTEIN 7.3 GM/DL (6.4-8.2)
[2020-02-05 12:46] LABS: CARBON DIOXIDE 22 MMOL/L (21-32)
[2020-02-05 12:47] LABS: BILIRUBIN,TOTAL 2.6 MG/DL (0.1-1.0)
[2020-02-05 12:49] LABS: ALKALINE PHOSPHATASE 70 U/L (40-136); CREATININE SERUM 1.07 MG/DL (0.60-1.30); GFR ESTIMATED > 60
[2020-02-05 12:50] LABS: BUN/CREATININE RATIO 11
[2020-02-05 12:52] LABS: ALANINE AMINOTRANSFERASE 19 U/L (0-55)
[2020-02-05] MEDS ORDERED: DOCU-143 PO (12:56)
--- NOTE | 2020-02-05 13:10 | NUR ---
TO ROOM WITH D/C INSTRUCTIONS. ALL QUESTIONS AND CONCERNS ADDRESSED. PT VERBALIZED AN UNDERSTANDING. PT AMBULATED FROM ER WITHOUT ISSUE.
[2020-02-05 13:14] VITALS: BP 142/77
== END 2020-02-05 13:15 | disposition home or self-care (01) ==
LOC: EDUNIT# 11:35 → ER 11:36
DX: K64.9 Unspecified hemorrhoids (principal); I48.91 Unspecified atrial fibrillation; I25.10 Atherosclerotic heart disease of native coronary artery without angina pectoris; I10 Essential (primary) hypertension; E78.00 Pure hypercholesterolemia, unspecified; K21.9 Gastro-esophageal reflux disease without esophagitis; Z79.82 Long term (current) use of aspirin; Z79.02 Long term (current) use of antithrombotics/antiplatelets; Z87.891 Personal history of nicotine dependence; Z77.22 Contact with and (suspected) exposure to environmental tobacco smoke (acute) (chronic); Z95.5 Presence of coronary angioplasty implant and graft
CPT/HCPCS: 36415; 80053; 85025; 85610; 99282

== ENCOUNTER → 2020-02-08 | Outpatient (CLI) | payer MEDICARE, OTHER ==
[~2020-02-08] VITALS: Ht 187 cm; Wt 92.7 kg
== END | disposition home or self-care (01) ==
LOC: PREOP 05:39
PROVIDERS: ATTEND Surgery
DX: Z01.818 Encounter for other preprocedural examination (principal)

== ENCOUNTER 2020-02-12 11:25 | Day surgery (SDC) | payer MEDICARE, OTHER ==
[~2020-02-12] VITALS: Ht 187 cm; Wt 92.7 kg
[2020-02-12] VITALS (7 sets, daily range): BP systolic 116–162; BP diastolic 62–85
[2020-02-12] MEDS ORDERED: LACTATED RINGERS 1,000 ML IV ONE (11:26)
[2020-02-12] MEDS ORDERED: LACTATED RINGERS 1,000 ML IV STA (11:36)
[2020-02-12] MEDS ORDERED: PROPOFOL INJECTION 50 ML IV ONE (11:37)
--- NOTE | 2020-02-12 11:42 | Progress Note-Pre Operative ---
Pre-Operative Progress Note H&P Reviewed The H&P was reviewed, patient examined and no changes noted. Time Seen by Provider: 11:40 Date H&P Reviewed: Feb 12, 2020 Time H&P Reviewed: 11:40 Pre-Operative Diagnosis: Rectal Bleed MYRA FREEMAN DO Feb 12, 2020 11:42
--- NOTE | 2020-02-12 12:41 | Anesthesia-General Post-Op ---
MAC Patient Condition Mental Status/LOC: Same as Preop Cardiovascular: Satisfactory Nausea/Vomiting: Absent Respiratory: Satisfactory Pain: Controlled Complications: Absent Post Op Complications Complications None Follow Up Care/Instructions Patient Instructions None needed. Anesthesiology Discharge Order Discharge Order Patient is doing well, no complaints, stable vital signs, no apparent adverse anesthesia problems. No complications reported per nursing. SIERRA BROWN CRNA Feb 12, 2020 12:41
--- NOTE | 2020-02-12 13:11 | Progress Note-Post Operative ---
Post-Operative Progess Note Surgeon (s)/Credit Review Analyst (s) Surgeon MYRA FREEMAN DO Credit Review Analyst: PERLA Blank Pre-Operative Diagnosis Rectal Bleed Post-Operative Diagnosis Diverticula Int hemorrhoids Procedure & Operative Findings Date of Procedure 02/12/20 Procedure Performed/Findings colonoscopy Anesthesia Type IV sedation by VIRTUAL ASSISTANT Estimated Blood Loss Estimated blood loss (mL): none Specimens/Packing Specimens Removed none MYRA FREEMAN DO Feb 12, 2020 13:11
--- NOTE | 2020-02-12 13:12 | Endoscopy Discharge Instruct ---
Endo Procedure/Findings Findings 1.: Diverticulosis 2.: Internal Hemorrhoids Discharge Instructions - Activity: You might feel a little sleepy until tomorrow. This is due to the medicine you received to relax you. Until tomorrow, you should: NOT drive a car, operate machinery or power tools. NOT drink any alcoholic beverages. NOT make any important decisions or sign importortant papers. Do not return to work until tomorrow, unless otherwise instructed. Resume previous activities tomorrow. Diet: Start by taking liquids. If you tolerate liquids, advance to solid food. 1.: Colonscopy in 10 years Notify Physician - If you experience excessive bleeding, unusual abdominal pain, fever, or chest pain, contact your doctor immediately. MYRA FREEMAN DO Feb 12, 2020 13:12
--- NOTE | 2020-02-12 13:22 | NUR ---
[facility] GO [facility]
--- NOTE | 2020-02-13 04:29 | OPERATIVE REPORT ---
DATE OF SERVICE: 02/12/2020 PREOPERATIVE DIAGNOSIS: Rectal bleed. POSTOPERATIVE DIAGNOSES: Rectal bleed, diverticula, internal hemorrhoids. PROCEDURE: Colonoscopy. SURGEON: Diallo Shrestha DO WATCH TRAIN ASSEMBLER: Larissa Parker MS3. ANESTHESIA: IV sedation by FILM DRYING MACHINE OPERATOR. SPECIMENS: None. BLOOD LOSS: None. FLUIDS: Per anesthesia. POSTOPERATIVE CONDITION: Stable. INDICATION FOR PROCEDURE: The patient is a 74-year-old male with rectal bleeding, needed a workup. FINDINGS: The patient had some diverticula and internal hemorrhoids with no other obvious pathology or source of bleeding. PROCEDURE NOTE: After informed consent was obtained, the patient was brought to the endoscopy suite, placed in bed in the left lateral decubitus position. He was administered IV sedation by the FILM DRYING MACHINE OPERATOR, who monitored his vitals the entire time, heart rate, blood pressure and pulse ox. A scope was inserted, pushed all the way to about 140 cm, able to get all the way to cecum, took a picture of appendiceal orifice, noted the ileocecal valve and then slowly withdrew the scope insufflating to look circumferentially at the hernandez looking the cecum, up the ascending colon to the hepatic flexure, then down the transverse colon, splenic flexure, into the descending colon and sigmoid colon, saw some small diverticula through the sigmoid colon. Continued down in the rectum, retroflexed in the rectal vault, saw some minimal internal hemorrhoids, took a picture and then removed the scope. The patient tolerated the procedure, recovered in endoscopy suite. Job ID: [id number] DocumentID: [id number] Dictated Date: 02/12/2020 18:29:11 Civil Engineering Project Designer Date: 02/13/2020 04:28:26 Dictated By: DIALLO SHRESTHA DO MTDD
== END 2020-02-12 14:24 | disposition home or self-care (01) ==
LOC: ENDO 11:25
PROVIDERS: ATTEND Surgery
DX: K57.30 Diverticulosis of large intestine without perforation or abscess without bleeding (principal); K64.8 Other hemorrhoids; E78.5 Hyperlipidemia, unspecified; I25.10 Atherosclerotic heart disease of native coronary artery without angina pectoris; I49.5 Sick sinus syndrome; I65.23 Occlusion and stenosis of bilateral carotid arteries; I48.91 Unspecified atrial fibrillation; I10 Essential (primary) hypertension; K21.9 Gastro-esophageal reflux disease without esophagitis; Z87.891 Personal history of nicotine dependence; Z79.01 Long term (current) use of anticoagulants; Z95.5 Presence of coronary angioplasty implant and graft; Z79.82 Long term (current) use of aspirin; Z79.899 Other long term (current) drug therapy

== ENCOUNTER → 2020-08-13 | Outpatient (CLI) | payer MEDICARE, OTHER ==
[~2020-08-13] MED LIST changes: +PANT20TA18 PO; -PANT20TA3 PO; -PANT40TA3 PO; +PANT40TA52 PO
[2020-08-13 15:39] LABS: ALBUMIN 4.3 GM/DL (3.2-4.5); BILIRUBIN,TOTAL 2.2 MG/DL (0.1-1.0); CREATININE SERUM 1.34 MG/DL (0.60-1.30); POTASSIUM 4.2 MMOL/L (3.6-5.0); TOTAL PROTEIN 6.9 GM/DL (6.4-8.2)
== END ==
LOC: LAB 14:52
PROVIDERS: ATTEND Internal Medicine Cardiovascular Disease
DX: E78.2 Mixed hyperlipidemia (principal)
CPT/HCPCS: 36415; 80053; 80061

== ENCOUNTER → 2020-09-19 | Outpatient (CLI) | payer MEDICARE, OTHER | LOC: CARD 11:15 | PROVIDERS: ATTEND Internal Medicine Cardiovascular Disease | DX: R07.9 Chest pain, unspecified (principal); I10 Essential (primary) hypertension | CPT/HCPCS: 93306 ==

== ENCOUNTER → 2020-09-25 | Outpatient (CLI) | payer MEDICARE, OTHER ==
[~2020-09-25] VITALS: Ht 187 cm; Wt 93.0 kg
[~2020-09-25] MED LIST changes: +REGADENOSON 0.4 MG/5 ML SYR (LEXISCAN) IV ONE
[2020-09-25] MEDS: CATHETER FLUSH 10 ML SYR IV PRN ×2 (07:43→09:04)
[2020-09-25 08:54] VITALS: BP 183/84
--- NOTE | 2020-09-25 14:35 | Cardiology Stress Test Report ---
Stress Test Report Date of Procedure/Referring: Date of Procedure: Sep 25, 2020 PCP Pilo Nicholson MD Admitting Physician No,Local Physician Indications: CP Baseline Heart Rate: 52 Baseline Blood Pressure: Blood Pressure Systolic: 183 Blood Pressure Diastolic: 84 Baseline Vitals Vital Signs Date Time Temp Pulse Resp B/P (MAP) Pulse Ox O2 Delivery O2 Flow Rate FiO2 09/25/20 08:54 51 16 183/84 (117) 98 Room Air Baseline EKG: Baseline EKG: NSR Summary After explaining the procedure to the patient, he signed a consent and then brought to the stress nuclear laboratory. Patient received 0.4 mg Lexiscan for stress test, ECG, heart rate and blood pressure were monitored continuously. Resting and stress dose of radio tracer were injected, imaging was acquired and reviewed in short axis, horizontal long axis and vertical long axis views. TID: 1.07 SSS: 3 SDS: 3 EF: 58 1. Patient tolerated Lexiscan well 2. Diaphragmatic attenuation with typical male pattern with no significant ischemia or infarction on SPECT images 3. Normal left ventricular size, EF 58% PILO NICHOLSON MD Sep 25, 2020 14:35
== END ==
LOC: CARD 08:00
PROVIDERS: ATTEND Internal Medicine Cardiovascular Disease
DX: R07.9 Chest pain, unspecified (principal)
CPT/HCPCS: 78452; 93017; A9502

== ENCOUNTER → 2021-12-04 | Outpatient (CLI) | payer MEDICARE, OTHER ==
[~2021-12-04] MED LIST changes: +CYCL10TA25 PO; -CYCL10TA9 PO; +OMEP20TA56 PO; -OMEP20TA7 PO; -REGADENOSON 0.4 MG/5 ML SYR (LEXISCAN) IV ONE
[2021-12-04 09:37] LABS: ALBUMIN 4.2 GM/DL (3.2-4.5); BILIRUBIN,TOTAL 2.7 MG/DL (0.1-1.0); CALCIUM 9.2 MG/DL (8.5-10.1); CREATININE SERUM 1.09 MG/DL (0.60-1.30); POTASSIUM 4.1 MMOL/L (3.6-5.0); TOTAL PROTEIN 6.6 GM/DL (6.4-8.2)
== END ==
LOC: LAB 08:52
PROVIDERS: ATTEND Physician Assistant
DX: I25.10 Atherosclerotic heart disease of native coronary artery without angina pectoris (principal); I65.23 Occlusion and stenosis of bilateral carotid arteries; E78.2 Mixed hyperlipidemia; I10 Essential (primary) hypertension
CPT/HCPCS: 36415; 80053; 80061

== ENCOUNTER 2022-12-23 12:55 | Emergency (ER) | payer MEDICARE, OTHER ==
[~2022-12-23] VITALS: Ht 187 cm; Wt 88.6 kg
[~2022-12-23 12:55] MED LIST changes: +ACEB200C17 PO
--- NOTE | 2022-12-23 13:25 | ED EENT ---
History of Present Illness General Chief Complaint: Ear Problems Stated Complaint: BILAT EAR ISSUES Nursing Triage Note: PT TO ED WITH C/O HISSING IN BOTH EARS FOR 5 WEEKS. HAS BEEN SEEN AT URGENT CARE ABOUT 1 MONTH AGO AND GIVEN NASAL SPRAY AND STEROID THAT DID NOT HELP. Source: patient Exam Limitations: no limitations History of Present Illness Date Seen by Provider: Dec 23, 2022 Time Seen by Provider: 13:23 Initial Comments Patient is a 77-year-old male who presents ED with bilateral ear hissing. Patient states symptoms started 5 weeks ago. His seen has been staying the same for the past 5 weeks. No nausea, vomiting, diarrhea, visual changes. Was seen at urgent care on November 16 was given Solu-Medrol Dosepak and nasal steroid without much improvement. He states he has had similar symptoms around 20 years ago described as more ear ringing that eventually improved. Did follow-up with ENT at that time. Denies of any hearing loss, unilateral muscle weakness or sensory changes. No history of stroke or on blood thinners. Patient denies of any ear drainage, chest pain, shortness of breath, vertigo Allergies and Home Medications Allergies Coded Allergies: No Known Drug Allergies (Unverified , 02/08/20) Patient Home Medication List Home Medication List Reviewed: Yes Acebutolol HCl (Acebutolol HCl) 200 Mg Capsule, 200 MG PO 2200, (Reported) Entered as Reported by: FARA MCBRIDE on 04/25/19 1250 Aspirin (Aspirin EC) 81 Mg Tablet.dr, 81 MG PO DAILY Prescribed by: PILO FORBES on 05/04/19 0746 Atorvastatin Calcium (Atorvastatin Calcium) 40 Mg Tablet, 40 MG PO 1200, (Reported) Entered as Reported by: FARA MCBRIDE on 04/25/19 1250 Cholestyramine/Aspartame (Prevalite Packet) 4 Gm Powd.pack, 2 GM PO DAILY, (Reported) Entered as Reported by: FRAA MCBRIDE on 04/25/19 1250 Clopidogrel Bisulfate (Clopidogrel) 75 Mg Tablet, 75 MG PO DAILY Prescribed by: PILO FORBES on 05/04/19 0746 Docusate Sodium (Colace) 100 Mg Capsule, 100 MG PO 1000,2200, (Reported) Entered as Reported by: VALARIE ALMODOVAR on 05/02/19 1422 [place] 3 Polyunsat Fatty Acids (Fish Oil 1,000 mg Capsule) 1,000 Mg Cap, 1,000 MG PO 1200,1700,2200, (Reported) Entered as Reported by: VALARIE ALMODOVAR on 05/02/191421 Pantoprazole Sodium (Pantoprazole Sodium) 20 Mg Tablet.dr, 20 MG PO DAILY, (Reported) Entered as Reported by: VALARIE ALMODOVAR on 05/02/191421 Review of Systems Review of Systems Constitutional: No chills, No diaphoresis Eyes: Denies Drainage, Denies Decreased Acuity Ears: Denies Pain; Tinnitus Nose: denies clots, denies congestion Mouth: denies clots, denies loose teeth Throat: denies pain, denies swelling Respiratory: No cough, No dyspnea on exertion Cardiovascular: No chest pain Gastrointestinal: No abdominal pain, No diarrhea, No nausea Skin: No change in color, No change in hair/nails All Other Systems Reviewed Negative Unless Noted: Yes Past Buibxdc-Dmeowc-Lwnzom Hx Patient Social History Tobacco Use?: No Substance use?: No Alcohol Use?: No Pt feels they are or have been: No Immunizations Up To Date Tetanus Booster (TDap): Unknown PED Vaccines UTD: No Seasonal Allergies Seasonal Allergies: No Past Medical History Surgeries: Yes Coronary Stent, Gallbladder Respiratory: No Currently Using CPAP: No Currently Using BIPAP: No Cardiac: Yes (STENT ) Atrial Fibrillation, Coronary Artery Disease, High Cholesterol, Hypertension Neurological: No Reproductive Disorders: No Sexually Transmitted Disease: No HIV/AIDS: No Genitourinary: Yes Prostate Problems Gastrointestinal: Yes Gastroesophageal Reflux, Chronic Constipation Musculoskeletal: No Endocrine: No HEENT: No (GLASSES) Loss of Vision: Denies Hearing Impairment: Denies Cancer: No Psychosocial: No Integumentary: No Blood Disorders: No Adverse Reaction/Blood Tranf: No (N/A) Family Medical History No Pertinent Family Hx Physical Exam Vital Signs Vital Signs - First Documented 12/23/22 13:07 Temp 35.6 Pulse 58 Resp 16 B/P (MAP) 125/67 (86) Pulse Ox 98 Height, Weight, BMI Height: 6'2.00" Weight: 212lbs. 4.0oz. 96.809636lp; 25.00 BMI Method:Stated General Appearance: WD/WN, no apparent distress Eyes: bilateral eye normal inspection, bilateral eye PERRL, bilateral eye EOMI Ears: bilateral ear auricle normal, bilateral ear canal normal, bilateral ear TM normal Nose: normal inspection Mouth/Throat: normal mouth inspection, pharynx normal Neck: non-tender, full range of motion, supple Cardiovascular: regular rate, rhythm, no edema, no gallop, no JVD Respiratory: chest non-tender, lungs clear, normal breath sounds, no respiratory distress Gastrointestinal: normal bowel sounds, non tender, soft Neurologic/Psychiatric: intelligence intern II-XII nml as tested, no motor/sensory deficits, alert, normal mood/affect, oriented x 3 Skin: normal color, warm/dry Progress/Results/Core Measures Results/Orders My Orders Orders - MAURO MACIAS Ct Head Wo (12/23/22 13:20) Vital Signs/I&O 12/23/22 12/23/22 13:07 14:32 Temp 35.6 35.6 Pulse 58 58 Resp 16 16 B/P (MAP) 125/67 (86) 125/67 Pulse Ox 98 98 Blood Pressure Mean: 86 Departure Communication (PCP) Reviewed previous ER visits, H&P, lab testing. Differential diagnoses tinnitus, otitis media, ototoxicity, Mnire's disease, brain lesion. Patient reports bilateral tinnitus for the past 5 weeks. States he went to urgent care november 16 was given nasal steroids and methylprednisolone without much improvement. Similar symptoms several years ago states he saw Dr. Henao and was given a medication but patient cannot recall the medication. Denies of any hearing loss, vertigo, severe headache, visual changes unilateral weakness or sensory changes. Bilateral TMs clear without evidence of otitis. No evidence of effusion. Denies exposure to loud noises. Went through patient's medication and does not appear to be any Ototoxicity medication. Denies history of carotid stenosis requiring stent placement. No specific head trauma. No ear pain or evidence of rash. Patient is normotensive. No TMJ tenderness. Denies excessive NSAID use, caffeine use or current diuretics. Not on any current antibiotics or antibiotics prior. Due to his complaint, with hearing changes CT scan of the head was ordered which did not show evidence of lesions or bleed. No evidence of bruits. No neurological red flag findings. Discussed exercise. Avoid silence. Decrease salt intake. would likely benefit following up with ENT for this continue tinnitus for the past 5 weeks. If any worsening symptoms such as severe head pain unilateral weakness or sensory changes to return back to ED. Impression Primary Impression: Tinnitus Disposition: 01 HOME, SELF-CARE Condition: Stable Departure-Patient Inst. Decision time for Depature: 14:25 Referrals: SUE HENAO MD NO,LOCAL PHYSICIAN (PCP) Primary Care Physician Patient Instructions: Tinnitus (ringing in the ears) Add. Discharge Instructions: Recommend follow-up with Dr. Henao for further evaluation. All discharge instructions reviewed with patient and/or family. Voiced understanding. MAURO MACIAS Dec 23, 2022 13:25
--- NOTE | 2022-12-23 14:13 | Diagnostic Imaging Report ---
PROCEDURE: CT head without contrast. TECHNIQUE: Multiple contiguous axial images were obtained through the brain without the use of intravenous contrast. Auto Exposure Controls were utilized during the CT exam to meet ALARA standards for radiation dose reduction. INDICATION: Head pain and hearing change. FINDINGS: The ventricles and sulci are within normal limits for size. There is no intracranial hemorrhage identified. There is no abnormal mass effect or shift of the midline structures. The paranasal sinuses, mastoid air cells, and middle ear cavities are clear. IMPRESSION: Unremarkable CT of the head. Dictated by: Dictated on workstation # [id number]
[2022-12-23 14:32] VITALS: BP 125/67
== END 2022-12-23 14:33 | disposition home or self-care (01) ==
LOC: EDUNIT# 12:55 → ER 12:57
DX: H93.13 Tinnitus, bilateral (principal)
CPT/HCPCS: 70450